=== PATIENT | female | born 1990 | race Caucasian/White ===

== ENCOUNTER 2018-02-03 13:45 | Outpatient (REF) | payer MEDICAID, SELFPAY ==
--- NOTE | 2018-02-03 13:00 | CER_PTH ---
PATIENT: Nelia Son LOC: [facility] U#:[id number] AGE/SX: 27/F ROOM: RE02/03/[address]: Jany Pham : 1990 BED: DIS: 02/03/2018 SPEC #: [id number] RECD: 02/03/18 17:29 STATUS: JEFRY REQing #: [id number] RIVERA: 02/03/18 13:[address]: Jany Pham DEPT: Surgical Specimen RECD BY: Mary Kelsey ENTERED: 02/03/18 17:30 SP TYPE: CER BOBBY DR: No Local Tissues: 1 - CERVICAL BIOPSY 2 - CERVICAL BIOPSY Procedures: GROSS AND MICRO LEVEL 5 Comments: [id number]
== END 2018-02-03 14:05 ==
LOC: LBN 13:45
PROVIDERS: Visit Provider Obstetrics & Gynecology Gynecology
DX: N87.1 Moderate cervical dysplasia (principal)
CPT/HCPCS: 88305; 88307

== ENCOUNTER 2018-04-30 15:15 | Emergency (ER) | payer MEDICAID, SELFPAY ==
[2018-04-30 15:40] VITALS: BP 111/82; PULSE 90; RESP 18; TEMP 36.8; O2SAT 99
--- NOTE | 2018-04-30 16:29 | ED.GENADUL_ITS ---
Discharge Plan Disposition Patient Disposition: HOME Condition: Stable Discharge Details Chief Complaint: RespSymp Clinical Impression: Upper respiratory infection Reason For Visit: cold Primary Care Provider: Svitlana Gilbert ED Provider: Audrey Cabrera Home Meds and New Rx's Prescriptions: Continued etonogestrel-ethinyl estradiol [NuvaRing] 1 EACH ring 1 ea VG 1 q 3 weeks Qty: 3 RF: 3 Discharge Instructions Instructions: Sinusitis (ED), Upper Respiratory Infection (ED) Additional Instructions: Please return immediately to the emergency department if you develop any new or worsening symptoms or if you become otherwise concerned. It is extremely important that you make an appointment with your primary care doctor to be seen within the next 1-2 weeks and follow-up for this visit. Referrals: Svitlana Gilbert [Primary Care Provider] - Discharge Data Discharge Date/Time-TO BE ENTERED AT DEPARTURE: 04/30/18 19:55 Medical Decision Making Nelia Son is a 27 y/o woman without h/o major medical problems presenting to the emergency department with cough, nasal congestion, and sinus pressure for one week after having recently course of abx for same. Did have asymptomatic period after finishing abx. On exam Pt is very well and non-toxic appearing. Mild sinus TTP. Lungs CTAB. Concern for possible PNA, flu. Plan for flu swab, CXR. Exam/hx not c/w sepsis, PE, ACS, CHF, bacterial sinusitis, meningitis, abscess. CXR okay. flu neg. No indication for abx or admission at this time. I had a lengthy discussion with the Pt re: RTED precautions and importance of outpt f/u with PCP. Pt verbalizes understanding of the plan. Medical Records Medical records reviewed: Yes I reviewed the patient's medical records. Imaging Data Radiologic Study: Attestation: I personally reviewed and interpreted this imaging study as follows: Radiologist's impression: CHEST X-RAY, PA AND LATERAL: Comparison 12/16/17 The heart is normal in size. The lungs are clear. The mediastinal structures and pleura appear intact. CONCLUSION: Normal chest. Lab Data Lab results reviewed: Yes I reviewed the patient's lab results. HPI General Mode of arrival: ambulatory . Date/Time Provider Initiated Documentation: 04/30/18 16:28 . Limitations to Documentation: no limitations . Information obtained by: patient, RN notes reviewed and old records reviewed . HPI Narrative: Nelia Son is a 27-year-old woman without history of major medical problems presenting to emergency department with cough, stuffy nose, and sinus pressure for 1 week. Patient reports that she was ill with similar symptoms last month, and took 10 days of antibiotics which she finished prior to . She reports no fevers, no shortness of breath, no pain other than sinus pressure, no nausea/vomiting/diarrhea, no rash, no weakness, no numbness or tingling. She has been eating and drinking as usual. No recent travel. Related Data Home Medications Medication Instructions Recorded Confirmed etonogestrel-ethinyl estradiol 1 ea VG 1 q 3 weeks #3 vag.ring 11/11/17 04/30/18 [NuvaRing] Previous Rx's Medication Instructions Recorded etonogestrel-ethinyl estradiol 1 ea VG 1 q 3 weeks #3 vag.ring 11/11/17 [NuvaRing] Allergies Allergy/AdvReac Type Severity Reaction Status Date / Time No Known Allergies Allergy Unverified 04/30/18 16:14 General Stated Complaint: RespSymp JIM: 4 Review of Systems Review of Systems Constitutional: denies fevers Eyes: denies eye pain ENT: denies facial pain, dental pain, sore throat Cardiovascular: denies chest pain, edema Respiratory: denies SOB, reports cough GI: denies abdominal pain, vomiting, diarrhea : denies flank pain MSK: denies back pain, neck pain, arthralgias, myalgias Skin: denies rash Neuro: denies headaches, lightheadedness, weakness PFSH Tobacco use (Acute) Abnormal Pap smear of cervix (Acute) DALLAS II (cervical intraepithelial neoplasia II) (Resolved) Surgical History H/O LEEP (Acute) Social History household members: children and other details: Cameron. Clinton. number of children: 2 Smoking/Tobacco Use Status: Current every day counseling given: provider counseling and counseling >3 minutes alcohol intake: current alcohol intake frequency: other details: MONTHLY OR LESS substance use type: does not use Female Reproductive History Menstrual control method: vaginal ring History History 2 Para 2 Hx # Term Pregnancies 2 Multiple births Hx # Pregnancies Ectopic pregnancies AB induced Hx Number of Living Children AB spontaneous Exam Narrative Exam Narrative: Constitutional: well and [id number]-[id number], pleasant, conversing normally HENT: head atraumatic, normocephalic normal inspection, mucous membranes moist, mild TTP of frontal sinuses, no overlying skin changes, normal oropharynx Eyes: conjunctiva normal, sclera normal, pupils 3mm b/l Neck: no stridor, normal ROM, trachea midline Chest: normal inspection Resp: normal work of breathing, LCTAB Cardio: normal rate, normal rhythm, no murmur appreciated Back: normal inspection, no rash Skin: warm, dry, normal color, no rash Neuro: alert, not altered, grossly non-focal, normal tone Ext: no edema, no posterior calf TTP Psych: normal mood, normal affect, normal behavior Course Vital Signs Temperature 36.8 C 04/30/18 15:40 Pulse 90 04/30/18 15:40 Respiratory Rate 18 04/30/18 15:40 Blood Pressure 111/82 04/30/18 15:40 Pulse Oximetry 99 04/30/18 15:40 Temperature 36.8 C 04/30/18 15:40 Temperature Source Tympanic 04/30/18 15:40 Pulse 90 04/30/18 15:40 Respiratory Rate 18 04/30/18 15:40 Respiratory Effort 04/30/18 16:15 Respiratory Depth Normal 04/30/18 16:15 Blood Pressure 111/82 04/30/18 15:40 Blood Pressure Position Sitting 04/30/18 15:40 Pulse Oximetry 99 04/30/18 15:40 Oxygen Delivery Method Room Air 04/30/18 15:40 Oxygen Flow Rate 0 04/30/18 15:40
--- NOTE | 2018-04-30 16:48 | DI.RAD_ITS ---
SYMPTOM/DIAGNOSIS: COUGH CHEST X-RAY, PA AND LATERAL: Comparison 12/16/17 The heart is normal in size. The lungs are clear. The mediastinal structures and pleura appear intact. CONCLUSION: Normal chest.
--- NOTE | 2018-04-30 17:54 | DI.VRAD_ITS ---
EXAM: XR Chest, 2 Views EXAM DATE/TIME: 04/30/2018 5:24 PM CLINICAL HISTORY: 27 years old, female; Signs and symptoms; Cough TECHNIQUE: XR of the chest, 2 views. COMPARISON: CR CHEST 2 VIEWS PA,LAT 12/16/2017 7:43 PM FINDINGS: Lungs: Unremarkable. No consolidation. Pleural space: Unremarkable. No pleural effusion. No pneumothorax. Heart/Mediastinum: Unremarkable. No cardiomegaly. Bones/joints: Unremarkable. IMPRESSION: No acute findings. Dictated and Authenticated by: Markie Waterman MD. Ordering:MALCOLM GONZALEZ MD
== END 2018-04-30 19:55 | disposition home or self-care (01) ==
PROVIDERS: Emergency Provider Student in an Organized Health Care Education/Training Program; PCP Nurse Practitioner
DX: J06.9 Acute upper respiratory infection, unspecified (principal)
CPT/HCPCS: 81025; 87449; 99283; 71046

== ENCOUNTER 2018-07-27 10:24 | Emergency (ER) | payer MEDICAID, SELFPAY ==
[2018-07-27 10:53] VITALS: BP 108/89; PULSE 86; RESP 16; TEMP 36.7; O2SAT 99
--- NOTE | 2018-07-27 11:03 | W.ED.GENAD ---
Discharge Plan Disposition Patient Disposition: HOME Condition: Stable Discharge Details Chief Complaint: Abd Prob Clinical Impression: Ovarian cyst Primary Care Provider: Svitlana Gilbert ED Provider: Wolf Lr Home Meds and New Rx's Prescriptions: New ibuprofen [IBU] 600 mg tablet 600 mg PO QID PRN (Reason: pain) Qty: 20 RF: 0 No Action NuvaRing 1 EACH ring 1 ea VG 1 q 3 weeks Qty: 3 RF: 3 Discharge Instructions Instructions: Ovarian Cyst (ED) Additional Instructions: Return immediately to the emergency department for any new or worsening symptoms, fever chills, nausea vomiting or further concerns you may have. Otherwise you should follow-up with [facility] later this week for reassessment. Please take ibuprofen as needed for pain control. Stand Alone Forms: Work Release Referrals: [facility] [Provider Group] - 1 week (For reassessment) Discharge Data Discharge Date/Time-TO BE ENTERED AT DEPARTURE: 07/27/18 18:02 Medical Decision Making Patient presenting to the emergency department for chief complaint of abdominal pain. She states this morning when she woke up she had some epigastric pain that radiated down to her left lower quadrant. Patient states some nausea no vomiting denies any other symptoms. Physical exam shows epigastric tenderness along with mild left lower quadrant tenderness. Patient did state that this felt similar to when she had her gallbladder attack in her gallbladder was removed. No specific peritoneal findings are noted on exam and abdomen shows no surgical findings at this time. Plan to check labs including urinalysis, hydrate, give GI cocktail and ranitidine for suspicion of gastritis. Plan to defer CT until after labs Reviewed labs which are non-worrisome at this time but patient was reassessed and stated improvement of epigastric tenderness but had continued left lower quadrant pain. Spoke to patient about risk versus benefit of CT imaging which she was agreeable to having CT imaging performed. Pending results due to continued pain patient given ketorolac. Review of CT imaging shows findings suggestive of right ruptured ovarian cyst and left vascular congestion. Patient reassessed after these findings and states increase in pain in left lower quadrant compared to other results. Given vascular congestion left lower quadrant pain and imaging findings involving ovaries I do feel that ultrasound imaging would be prudent to perform. Patient is agreeable to waiting for this imaging and testing Review of testing shows right ovarian cyst with no signs or evidence of torsion at this time. Patient reassessed and states stable pain and appears comfortable at this time. Patient was recommended to follow-up with gynecology and was prescribed NSAIDs for pain relief. Return precautions were discussed. After discussion of diagnosis and plan of care patient has no further needs, questions, or concerns and states clear understanding to return to the emergency department for any worsening symptoms. HPI General Mode of arrival: ambulatory. Date/Time Provider Initiated Documentation: 07/27/18 10:55. Limitations to Documentation: no limitations. Information obtained by: patient. History of Present Illness described as moderate, with intensity rated at 7. Quality is described as sharp, and is localized to the abdomen. Patient started experiencing this hour(s) (3) and it has been constant. No relieving factors improve symptom(s), No exacerbating factors reported . Patient notes no other symptoms.. Patient did receive the following treatments prior to arrival, none Related Data Home Medications Medication Instructions Recorded Confirmed NuvaRing 1 ea VG 1 q 3 weeks #3 vag.ring 11/11/17 07/31/18 ibuprofen [IBU] 600 mg PO QID PRN #20 tab 07/27/18 07/31/18 Previous Rx's Medication Instructions Recorded NuvaRing 1 ea VG 1 q 3 weeks #3 vag.ring 11/11/17 ibuprofen [IBU] 600 mg PO QID PRN #20 tab 07/27/18 Allergies Allergy/AdvReac Type Severity Reaction Status Date / Time No Known Allergies Allergy Unverified 07/31/18 08:53 General Stated Complaint: Abd Prob JIM: 3 Review of Systems Constitutional Denies chills, Denies fever(s) and Reports poor appetite Cardiovascular Denies chest pain and Denies dyspnea Respiratory Denies cough and Denies dyspnea Gastrointestinal Reports as per HPI, Reports abdominal pain, Denies melena, Denies change in bowel habits, Denies constipation, Denies diarrhea, Reports nausea and Denies vomiting Genitourinary Denies hematuria, Denies urinary incontinence, Denies urinary hesitancy and Denies urinary urgency Integumentary/Breasts Denies rash [facility] Medical History Tobacco use (Acute) Abnormal Pap smear of cervix (Acute) DALLAS II (cervical intraepithelial neoplasia II) (Resolved) Surgical History H/O LEEP (Acute) Social History Smoking/Tobacco Use Status: Current every day Counseling given: provider counseling and counseling >3 minutes Alcohol Intake: current Alcohol Intake frequency: other Details: MONTHLY OR LESS Drug use: Never Substance use type: does not use Household members: children and other Details: Cameron. [place]. Do you feel safe in your relationship?: Yes Female Reproductive History Menstrual control method: vaginal ring History History 2 Para 2 Hx # Term Pregnancies 2 Multiple births Hx # Pregnancies Ectopic pregnancies AB induced Hx Number of Living Children AB spontaneous Exam Const General: cooperative Orientation: alert, awake and oriented x3 Resp Effort & Inspection: normal respiratory effort and able to speak in complete sentences Auscultation: clear to auscultation bilaterally Cardio Rate: regular rate Rhythm: regular rhythm Heart Sounds: S1 normal and S2 normal GI Palpation: soft, no hepatosplenomegaly, not firm, no guarding, no masses, no pulsatile masses, not rigid, no splenomegaly and tender in the epigastrum and in the LLQ Auscultation: normal bowel sounds Back/Spine/Pelvis Back: no CVA tenderness Neuro General: alert, awake, oriented x3, gait normal and moves all extremities Course Vital Signs Temperature 36.7 C 07/27/18 10:53 Pulse 86 07/27/18 10:53 Respiratory Rate 16 07/27/18 10:53 Blood Pressure 108/89 07/27/18 10:53 Pulse Oximetry 99 07/27/18 10:53 Temperature 36.7 C 07/27/18 10:53 Temperature Source Tympanic 07/27/18 10:53 Pulse 86 07/27/18 10:53 Respiratory Rate 16 07/27/18 10:53 Blood Pressure 108/89 07/27/18 10:53 Pulse Oximetry 99 07/27/18 10:53 Oxygen Delivery Method Room Air 07/27/18 10:53 Oxygen Flow Rate 0 07/27/18 10:53 Pain Level 7 07/27/18 10:53
--- NOTE | 2018-07-27 11:06 | ED.GENADUL_ITS ---
Discharge Plan Disposition Patient Disposition: HOME Condition: Stable Discharge Details Chief Complaint: Abd Prob Clinical Impression: Ovarian cyst Primary Care Provider: Svitlana Gilbert ED Provider: Wolf Lr Home Meds and New Rx's Prescriptions: New ibuprofen [IBU] 600 mg tablet 600 mg PO QID PRN (Reason: pain) Qty: 20 RF: 0 No Action NuvaRing 1 EACH ring 1 ea VG 1 q 3 weeks Qty: 3 RF: 3 Discharge Instructions Instructions: Ovarian Cyst (ED) Additional Instructions: Return immediately to the emergency department for any new or worsening symptoms, fever chills, nausea vomiting or further concerns you may have. Otherwise you should follow-up with [facility] later this week for reassessment. Please take ibuprofen as needed for pain control. Stand Alone Forms: Work Release [facility] (For reassessment) Discharge Data Discharge Date/Time-TO BE ENTERED AT DEPARTURE: 07/27/18 18:02 Medical Decision Making Patient presenting to the emergency department for chief complaint of abdominal pain. She states this morning when she woke up she had some epigastric pain that radiated down to her left lower quadrant. Patient states some nausea no vomiting denies any other symptoms. Physical exam shows epigastric tenderness along with mild left lower quadrant tenderness. Patient did state that this felt similar to when she had her gallbladder attack in her gallbladder was removed. No specific peritoneal findings are noted on exam and abdomen shows no surgical findings at this time. Plan to check labs including urinalysis, hydrate, give GI cocktail and ranitidine for suspicion of gastritis. Plan to defer CT until after labs Reviewed labs which are non-worrisome at this time but patient was reassessed and stated improvement of epigastric tenderness but had continued left lower quadrant pain. Spoke to patient about risk versus benefit of CT imaging which she was agreeable to having CT imaging performed. Pending results due to continued pain patient given ketorolac. Review of CT imaging shows findings suggestive of right ruptured ovarian cyst and left vascular congestion. Patient reassessed after these findings and states increase in pain in left lower quadrant compared to other results. Given vascular congestion left lower quadrant pain and imaging findings involving ovaries I do feel that ultrasound imaging would be prudent to perform. Patient is agreeable to waiting for this imaging and testing Review of testing shows right ovarian cyst with no signs or evidence of torsion at this time. Patient reassessed and states stable pain and appears comfortable at this time. Patient was recommended to follow-up with gynecology and was prescribed NSAIDs for pain relief. Return precautions were discussed. After discussion of diagnosis and plan of care patient has no further needs, questions, or concerns and states clear understanding to return to the emergency department for any worsening symptoms. HPI General Mode of arrival: ambulatory . Date/Time Provider Initiated Documentation: 07/27/18 10:55 . Limitations to Documentation: no limitations . Information obtained by: patient . History of Present Illness described as moderate, with intensity rated at 7. Quality is described as sharp, and is localized to the abdomen. Patient started experiencing this hour(s) (3) and it has been constant. No relieving factors improve symptom(s), No exacerbating factors reported . Patient notes no other symptoms.. Patient did receive the following treatments prior to arrival, none Related Data Home Medications Medication Instructions Recorded Confirmed NuvaRing 1 ea VG 1 q 3 weeks #3 vag.ring 11/11/17 07/31/18 ibuprofen [IBU] 600 mg PO QID PRN #20 tab 07/27/18 07/31/18 Previous Rx's Medication Instructions Recorded NuvaRing 1 ea VG 1 q 3 weeks #3 vag.ring 11/11/17 ibuprofen [IBU] 600 mg PO QID PRN #20 tab 07/27/18 Allergies Allergy/AdvReac Type Severity Reaction Status Date / Time No Known Allergies Allergy Unverified 07/31/18 08:53 General Stated Complaint: Abd Prob JIM: 3 Review of Systems Constitutional Denies chills, Denies fever(s) and Reports poor appetite Cardiovascular Denies chest pain and Denies dyspnea Respiratory Denies cough and Denies dyspnea Gastrointestinal Reports as per HPI, Reports abdominal pain, Denies melena, Denies change in bowel habits, Denies constipation, Denies diarrhea, Reports nausea and Denies vomiting Genitourinary Denies hematuria, Denies urinary incontinence, Denies urinary hesitancy and Denies urinary urgency Integumentary/Breasts Denies rash [facility] Medical History Tobacco use (Acute) Abnormal Pap smear of cervix (Acute) DALLAS II (cervical intraepithelial neoplasia II) (Resolved) Surgical History H/O LEEP (Acute) Social History Smoking/Tobacco Use Status: Current every day Counseling given: provider counseling and counseling >3 minutes Alcohol Intake: current Alcohol Intake frequency: other Details: MONTHLY OR LESS Drug use: Never Substance use type: does not use Household members: children and other Details: Cameron. [place]. Do you feel safe in your relationship?: Yes Female Reproductive History Menstrual control method: vaginal ring History History 2 Para 2 Hx # Term Pregnancies 2 Multiple births Hx # Pregnancies Ectopic pregnancies AB induced Hx Number of Living Children AB spontaneous Exam Const General: cooperative Orientation: alert, awake and oriented x3 Resp Effort & Inspection: normal respiratory effort and able to speak in complete sentences Auscultation: clear to auscultation bilaterally Cardio Rate: regular rate Rhythm: regular rhythm Heart Sounds: S1 normal and S2 normal GI Palpation: soft, no hepatosplenomegaly, not firm, no guarding, no masses, no pulsatile masses, not rigid, no splenomegaly and tender in the epigastrum and in the LLQ Auscultation: normal bowel sounds Back/Spine/Pelvis Back: no CVA tenderness Neuro General: alert, awake, oriented x3, gait normal and moves all extremities Course Vital Signs Temperature 36.7 C 07/27/18 10:53 Pulse 86 07/27/18 10:53 Respiratory Rate 16 07/27/18 10:53 Blood Pressure 108/89 07/27/18 10:53 Pulse Oximetry 99 07/27/18 10:53 Temperature 36.7 C 07/27/18 10:53 Temperature Source Tympanic 07/27/18 10:53 Pulse 86 07/27/18 10:53 Respiratory Rate 16 07/27/18 10:53 Blood Pressure 108/89 07/27/18 10:53 Pulse Oximetry 99 07/27/18 10:53 Oxygen Delivery Method Room Air 07/27/18 10:53 Oxygen Flow Rate 0 07/27/18 10:53 Pain Level 7 07/27/18 10:53
[2018-07-27] MEDS: Normal Saline 1,000 ML 1000 ML IV (11:14)
[2018-07-27 11:17] LABS: Abs Immature Grans 0.02 k/cumm (0.0-0.09); Absolute Basophil Count 0.04 k/cumm (0.0-0.2); Absolute Eosinophil Count 0.14 k/cumm (0.0-0.7); Absolute Lymphocyte Count 1.45 k/cumm (1.2-3.4); Absolute Monocyte Count 0.85 k/cumm (0.11-0.7); Absolute Neutrophil Count 7.85 k/cumm (1.2-6.7); Basophils % 0.4; Eosinophils % 1.4; HCT 41.9 % (36.0-46.0); HGB 13.9 g/dL (12.0-15.5); Immature Grans % 0.2; Mean Corp. HGB Concentration 33.2 g/dL (32.0-36.0); Mean Corpuscular Hemoglobin 29.6 pg (27.0-33.0); Mean Corpuscular Volume 89.1 fL (80-95); Monocytes % 8.2; Neutrophils % 75.8; Platelet Count 369 x1000/uL (130-400); RBC Distribution Width 12.7 % (11.7-14.6); White Blood Cell Count 10.35 k/cumm (4.4-10.8)
[2018-07-27 11:20] LABS: Bilirubin Negative (Negative); Blood Negative (Negative); Clarity Clear; Glucose Negative (Negative); Ketones Negative (Negative); Leukocyte Esterase Negative (Negative); Nitrite Negative (Negative); Urobilinogen 0.2 EU/dL (Up TO 0.2)
[2018-07-27 11:29] LABS: ALT 23 U/L (12-78); AST 20 U/L (15-37); Albumin 3.8 g/dL (3.4-5.0); Alkaline Phosphatase 91 U/L (46-116); Anion Gap 6.5 mmol/L (3-11); BUN 12 mg/dL (7-18); Bilirubin, Total 0.3 mg/dL (0.2-1.0); CO2 28.5 mmol/L (21.0-32.0); CREATININE 0.88 mg/dL (0.55-1.02); Calcium 8.9 mg/dL (8.5-10.1); Chloride 102 mmol/L (98-107); Glucose 99 mg/dL (70-100); Lipase 117 U/L (73-393); Potassium 3.8 mmol/L (3.5-5.1); Sodium 137 mmol/L (136-145)
--- NOTE | 2018-07-27 12:31 | DI.CT_ITS ---
SYMPTOM/DIAGNOSIS: ABD PAIN ABDOMEN AND PELVIC CT: CT scan was performed following the uneventful administration of intravenous contrast material. Dependent atelectatic changes are seen in the lungs. The liver is normal in size. No evidence of a hepatic mass. There is mild periportal edema noted. No biliary ductal dilatation is present. The patient is status post cholecystectomy. The portal, superior mesenteric and splenic veins are patent. The pancreas is unremarkable as are the spleen and adrenal glands. The kidneys show normal and symmetric enhancement. No evidence of a solid renal mass or obstruction. The urinary bladder is intact. The uterus appears mildly heterogeneous and uterine fibroids cannot be excluded. The left ovary is grossly unremarkable. Within the right ovary, there are multiple cystic regions, the largest has an enhancing rim and measures 2.8 cm. There is a small to moderate amount of free fluid in the cul-de-sac which may reflect recently ruptured cyst. There is prominence of the pelvic veins, particularly on the left. The bowel shows no evidence of obstruction or inflammation. No evidence of an acute appendicitis is present. The abdominal aorta is of normal caliber. No evidence of abdominal or pelvic adenopathy or pneumoperitoneum is seen. No acute osseous abnormality is identified. IMPRESSION: 1. Right ovary cyst measuring 2.8 cm. 2. Small to moderate amount of free fluid in the cul-de-sac which may represent a recently ruptured cyst. 3. Prominent pelvic veins, particularly on the left which may reflect some degree of pelvic congestion syndrome.
[2018-07-27] MEDS: Ketorolac 15 MG/ML VIAL IVP (12:37)
[2018-07-27 12:39] VITALS: BP 101/61; PULSE 60; RESP 18; TEMP 36.6; O2SAT 98
[2018-07-27] MEDS: Omnipaque 350 MG/ML 100 ML BTL IV (13:15)
[2018-07-27 14:04] VITALS: BP 92/53; PULSE 60; RESP 16; TEMP 36.8; O2SAT 100
--- NOTE | 2018-07-27 14:14 | DI.VRAD_ITS ---
EXAM: CT Abdomen and Pelvis With Contrast EXAM DATE/TIME: 07/27/2018 12:32 PM CLINICAL HISTORY: 28 years old, female; Signs and symptoms; Other: Abd pain; Prior surgery; Surgery date: 6+ months; Surgery type: x2 cholecystectomy TECHNIQUE: Axial computed tomography images of the abdomen and pelvis with intravenous contrast. All CT scans at this facility use at least one of these dose optimization techniques: automated exposure control; mA and/or kV adjustment per patient size (includes targeted exams where dose is matched to clinical indication); or iterative reconstruction. Coronal and sagittal reformatted images were created and reviewed. CONTRAST: Contrast Material: 71 ml of [id number]; Contrast Route: iv COMPARISON: [facility]TR[facility] 12/14/2013 4:48 PM FINDINGS: Prior cholecystectomy. Mild periportal edema exact etiology uncertain. Mild to moderate pelvic free fluid with a somewhat irregular rim-enhancing 2 cm right ovary and cyst. Findings are in keeping with recent ovarian cyst rupture. Prominent pelvic veins particularly on the left suggesting some degree of pelvic congestion syndrome. No focal inflammatory process. No bowel obstruction. No obstructive uropathy. IMPRESSION: 1. Findings suggesting recent ovarian cyst rupture. 2. Incidental possible pelvic congestion syndrome Dictated and Authenticated by: Jude Wright MD. Ordering:CARLO Bloom MD
--- NOTE | 2018-07-27 16:26 | DI.US_ITS ---
SYMPTOM/DIAGNOSIS: LLQ PAIN, F/U ABNL CT PELVIC ULTRASOUND: Transabdominal and transvaginal examination was performed. Comparison is made with CT from earlier in the day. The uterus measures 7.9 cm. in length by 4.9 cm. AP by 5.8 cm. transverse. The endometrial stripe is within normal limits at .5 cm. There is a tiny amount of fluid seen in the endometrial canal. The left ovary measures 3.3 by 1.7 by 1.5 cm. There is arterial and venous blood flow to the left ovary. Small follicular cysts are seen. No suspicious left ovarian msas is present. No evidence of torsion is seen. The right ovary measures 6.9 by 3.9 by 3.2 cm. There is a 1.8 by 1.6 by 0.9 cm. complex right ovarian cyst. There is a 5.5 by 2.7 by 2.4 cm. simple ovarian cyst on the right ovary. There is normal blood flow to the right ovary. No evidence of torsion is seen. There is a small amount of free fluid in the pelvis which is likely physiologic. No hydronephrosis is identified. IMPRESSION: Right ovarian cysts, the largest measuring 5.5 cm. in length, the smaller measuring 1.8 cm. These likely are physiologic. The findings may represent a recently ruptured cyst. A follow up pelvic ultrasound should be considered to document resolution of the right ovarian findings.
--- NOTE | 2018-07-27 16:33 | NUR.NOTE ---
patient appears comfortable at this time, will continue to monitor Nursing Note:
--- NOTE | 2018-07-27 17:21 | NUR.NOTE ---
patient returned from U/S, pain improved 08/27 Nursing Note:
[2018-07-27 17:22] VITALS: BP 112/74; PULSE 74; RESP 14; TEMP 37; O2SAT 100
--- NOTE | 2018-07-27 17:45 | DI.VRAD_ITS ---
EXAM: US Pelvis Complete, Transabdominal and US Pelvis, Transvaginal EXAM DATE/TIME: 07/27/2018 5:17 PM CLINICAL HISTORY: 28 years old, female; Pain and abnormal findings; Abnormal imaging test; Pelvic pain TECHNIQUE: Real-time transabdominal and transvaginal pelvic ultrasound (complete) with image documentation. Transvaginal imaging was used for better evaluation of the endometrium and adnexa. COMPARISON: CT ABDOMEN PELVIS W 07/27/2018 12:15 PM FINDINGS: 1.8 cm slightly complex right ovarian cyst. Small amount of pelvic free fluid. Uterus and left ovary unremarkable. IMPRESSION: Findings consistent with recent ovarian cyst rupture. Dictated and Authenticated by: Jude Wright MD. Ordering:CARLO Bloom MD
[2018-07-27 18:00] VITALS: BP 111/91; PULSE 77; RESP 16; TEMP 37; O2SAT 100
--- NOTE | 2018-07-28 08:04 | PDOC.ERCMPRO ---
Care Management Progress Note 07/28-Sin TAVAREZ requested assistance with a [facility] f/u in one week for ovarian cyst. Referral faxed to [facility] this am.
== END 2018-07-27 18:02 | disposition home or self-care (01) ==
PROVIDERS: Emergency Provider Nurse Practitioner Family; PCP Nurse Practitioner
DX: N83.291 Other ovarian cyst, right side (principal)
CPT/HCPCS: 36415; 80053; 81025; 83690; 96361; 96374; 99285; 74177; 76830; 76856; 81003; 85025; 99284; J1885; J3490

== ENCOUNTER 2018-08-28 00:20 | Outpatient (CLI) | payer MEDICAID, SELFPAY ==
--- NOTE | 2018-08-28 07:49 | DI.US_ITS ---
SYMPTOMS/DIAGNOSIS: F/U OVARIAN CYST, N83.209 PELVIC ULTRASOUND: The uterus is unremarkable in appearance. The endometrial stripe measures about 12 mm in thickness. No free fluid identified in the cul-de-sac. The ovaries have a normal follicular appearance with resolution of previously noted right ovarian simple and complex cysts. As noted on CT there is prominence of left adnexal veins raising the possibility of pelvic congestion syndrome. Please correlate clinically.
== END 2018-08-28 00:40 ==
PROVIDERS: PCP Nurse Practitioner; Visit Provider Obstetrics & Gynecology
DX: N83.291 Other ovarian cyst, right side (principal); N94.89 Other specified conditions associated with female genital organs and menstrual cycle
CPT/HCPCS: 76830; 76856

== ENCOUNTER 2018-10-14 14:25 | Emergency (ER) | payer MEDICAID, SELFPAY ==
[2018-10-14 14:29] VITALS: BP 105/67; PULSE 86; RESP 16; TEMP 36.6; O2SAT 99
--- NOTE | 2018-10-14 14:34 | W.ED.GENAD ---
Discharge Plan Disposition Patient Disposition: HOME Condition: Fair Discharge Details Chief Complaint: Sorethroat Clinical Impression: Acute pharyngitis Primary Care Provider: Svitlana Gilbert ED Provider: Sabrina Thorpe Home Meds and New Rx's Prescriptions: Continued NuvaRing 1 EACH ring 1 ea VG 1 q 3 weeks Qty: 3 RF: 3 Discharge Instructions Instructions: Pharyngitis (ED) Additional Instructions: Encourage hydration. Tylenol and/or Ibuprofen as needed for discomfort. If you develop fevers/chills, increased pain, difficulty breathing, inability to stay hydrated, swelling or other new/worsening symptoms please seek care urgently once again. Follow up with primary care in one week if not improving. Referrals: Svitlana Gilbert [Primary Care Provider] - Discharge Data Discharge Date/Time-TO BE ENTERED AT DEPARTURE: 10/14/18 15:27 Medical Decision Making Patient is a 28-year-old female presenting today with chief complaint of sore throat began yesterday. She denies any fevers or chills. Is nontoxic on exam. Vital signs within normal limits. Patient has erythema and mild tonsillar hypertrophy on exam. Lungs are clear. No other acute abnormalities noted. Rapid strep was negative. Discussed this with the patient. Advised likely viral etiology. Encourage hydration. Advised Tylenol and ibuprofen as needed for discomfort. She was given strict return precautions. All her questions and concerns were addressed and she is in agreement this plan. She will follow-up with primary care in 1 week if not improving. HPI General Mode of arrival: ambulatory. Date/Time Provider Initiated Documentation: 10/14/18 14:26. Limitations to Documentation: no limitations. Information obtained by: patient and RN notes reviewed. History of Present Illness 28 year old F presents to the emergency department with the chief complaint of sore throat, described as severe, with intensity rated at 10. Quality is described as burning, and is localized to the mouth. Patient started experiencing this day(s) (1) and it has been constant. No relieving factors improve symptom(s), Eating worsens symptoms . Patient notes denies chest pain, cough, fever/chills, headaches, loss of appetite, nausea/vomiting, rash, shortness of breath and weakness. Patient did receive the following treatments prior to arrival, none Related Data Home Medications Medication Instructions Recorded Confirmed NuvaRing 1 ea VG 1 q 3 weeks #3 vag.ring 11/11/17 10/14/18 Previous Rx's Medication Instructions Recorded NuvaRing 1 ea VG 1 q 3 weeks #3 vag.ring 11/11/17 Allergies Allergy/AdvReac Type Severity Reaction Status Date / Time No Known Allergies Allergy Unverified 10/14/18 14:41 General Stated Complaint: Sorethroat JIM: 4 Review of Systems Constitutional Reports as per HPI, Denies chills, Denies fever(s), Denies headache(s) and Denies lethargy Eyes Reports as per HPI, Denies eye discharge and Denies irritation ENT Reports as per HPI, Reports otalgia (right sided), Denies headache(s), Reports sore throat and Denies throat swelling Cardiovascular Reports as per HPI, Denies chest pain and Denies dyspnea Respiratory Reports as per HPI and Denies dyspnea Gastrointestinal Reports as per HPI, Denies abdominal pain, Denies change in bowel habits, Denies nausea and Denies vomiting Integumentary/Breasts Reports as per HPI and Denies rash Neurologic Reports as per HPI and Denies headache(s) Allergic/Immunologic Denies throat swelling [facility] Medical History Tobacco use (Acute) Abnormal Pap smear of cervix (Acute) DALLAS II (cervical intraepithelial neoplasia II) (Resolved) Surgical History H/O LEEP (Acute) Social History Smoking/Tobacco Use Status: Former Tobacco Use Counseling given: provider counseling and counseling >3 minutes Alcohol Intake: current Alcohol Intake frequency: a few times a month Alcohol type: beer and wine Details: MONTHLY OR LESS Drug use: Never Substance use type: does not use Household members: children and other Details: Cameron. [place]. Number of Children: 2 Do you feel safe at home: Yes Do you feel safe in your relationship?: Yes Female Reproductive History Menstrual control method: vaginal ring History History 2 Para 2 Hx # Term Pregnancies 2 Multiple births Hx # Pregnancies Ectopic pregnancies AB induced Hx Number of Living Children AB spontaneous Exam Const General: cooperative, healthy appearing, comfortable, no acute distress, well developed and well groomed Nutritional Appearance: average body habitus and well nourished Orientation: alert and awake [facility] Head: normal to inspection, normocephalic and atraumatic Ears: hearing grossly normal bilaterally, external ears normal and TM's normal bilaterally General nose exam: external nose normal and nares normal Face and sinus: normal facial exam, sinuses nontender and face symmetric Mouth: oral mucosae normal, lip normal, tongue normal, oropharynx normal and moist mucous membranes Teeth and gingiva: dentition normal Throat: uvula midline, abnormal tonsil bilaterally erythema and hypertrophy 1+, no peritonsillar masses, uvula not displaced and no uvular edema Eyes General: appearance normal, both eyes and all related structures Neck Neck: normal visual inspection, full ROM, no lymphadenopathy and no meningeal signs Resp Effort & Inspection: normal respiratory effort, able to speak in complete sentences and no respiratory distress Auscultation: clear to auscultation bilaterally, no rales, no rhonchi and no wheezes Cardio Rate: regular rate Rhythm: regular rhythm Heart Sounds: S1 normal and S2 normal Skin General skin exam: no rashes or lesions noted Neuro General: alert and awake Cognition: normal cognition Speech: speech normal Gait: normal gait Psych Appearance: grossly normal and well kempt Mental Status: mental status grossly normal Speech and Movement: speech and movement normal Course Vital Signs Temperature 36.6 C 10/14/18 14:29 Pulse 86 10/14/18 14:29 Respiratory Rate 16 10/14/18 14:29 Blood Pressure 105/67 10/14/18 14:29 Pulse Oximetry 99 10/14/18 14:29 Temperature 36.6 C 10/14/18 14:29 Temperature Source Skin 10/14/18 14:29 Pulse 86 10/14/18 14:29 Respiratory Rate 16 10/14/18 14:29 Blood Pressure 105/67 10/14/18 14:29 Blood Pressure Position Sitting 10/14/18 14:29 Pulse Oximetry 99 10/14/18 14:29 Oxygen Delivery Method Room Air 10/14/18 14:29 Oxygen Flow Rate 0 10/14/18 14:29 Pain Level 10 10/14/18 14:29
--- NOTE | 2018-10-14 14:50 | ED.GENADUL_ITS ---
Discharge Plan Disposition Patient Disposition: HOME Condition: Fair Discharge Details Chief Complaint: Sorethroat Clinical Impression: Acute pharyngitis Primary Care Provider: Svitlana Gilbert ED Provider: Sabrina Thorpe Home Meds and New Rx's Prescriptions: Continued NuvaRing 1 EACH ring 1 ea VG 1 q 3 weeks Qty: 3 RF: 3 Discharge Instructions Instructions: Pharyngitis (ED) Additional Instructions: Encourage hydration. Tylenol and/or Ibuprofen as needed for discomfort. If you develop fevers/chills, increased pain, difficulty breathing, inability to stay hydrated, swelling or other new/worsening symptoms please seek care urgently once again. Follow up with primary care in one week if not improving. Referrals: Svitlana Gilbert [Primary Care Provider] - Discharge Data Discharge Date/Time-TO BE ENTERED AT DEPARTURE: 10/14/18 15:27 Medical Decision Making Patient is a 28-year-old female presenting today with chief complaint of sore throat began yesterday. She denies any fevers or chills. Is nontoxic on exam. Vital signs within normal limits. Patient has erythema and mild tonsillar hypertrophy on exam. Lungs are clear. No other acute abnormalities noted. Rapid strep was negative. Discussed this with the patient. Advised likely viral etiology. Encourage hydration. Advised Tylenol and ibuprofen as needed for discomfort. She was given strict return precautions. All her questions and concerns were addressed and she is in agreement this plan. She will follow-up with primary care in 1 week if not improving. HPI General Mode of arrival: ambulatory . Date/Time Provider Initiated Documentation: 10/14/18 14:26 . Limitations to Documentation: no limitations . Information obtained by: patient and RN notes reviewed . History of Present Illness 28 year old F presents to the emergency department with the chief complaint of sore throat, described as severe, with intensity rated at 10. Quality is described as burning, and is localized to the mouth. Patient started experiencing this day(s) (1) and it has been constant. No relieving factors improve symptom(s), Eating worsens symptoms . Patient notes denies chest pain, cough, fever/chills, headaches, loss of appetite, nausea/vomiting, rash, shortness of breath and weakness. Patient did receive the following treatments prior to arrival, none Related Data Home Medications Medication Instructions Recorded Confirmed NuvaRing 1 ea VG 1 q 3 weeks #3 vag.ring 11/11/17 10/14/18 Previous Rx's Medication Instructions Recorded NuvaRing 1 ea VG 1 q 3 weeks #3 vag.ring 11/11/17 Allergies Allergy/AdvReac Type Severity Reaction Status Date / Time No Known Allergies Allergy Unverified 10/14/18 14:41 General Stated Complaint: Sorethroat JIM: 4 Review of Systems Constitutional Reports as per HPI, Denies chills, Denies fever(s), Denies headache(s) and Denies lethargy Eyes Reports as per HPI, Denies eye discharge and Denies irritation ENT Reports as per HPI, Reports otalgia (right sided), Denies headache(s), Reports sore throat and Denies throat swelling Cardiovascular Reports as per HPI, Denies chest pain and Denies dyspnea Respiratory Reports as per HPI and Denies dyspnea Gastrointestinal Reports as per HPI, Denies abdominal pain, Denies change in bowel habits, Denies nausea and Denies vomiting Integumentary/Breasts Reports as per HPI and Denies rash Neurologic Reports as per HPI and Denies headache(s) Allergic/Immunologic Denies throat swelling [facility] Medical History Tobacco use (Acute) Abnormal Pap smear of cervix (Acute) DALLAS II (cervical intraepithelial neoplasia II) (Resolved) Surgical History H/O LEEP (Acute) Social History Smoking/Tobacco Use Status: Former Tobacco Use Counseling given: provider counseling and counseling >3 minutes Alcohol Intake: current Alcohol Intake frequency: a few times a month Alcohol type: beer and wine Details: MONTHLY OR LESS Drug use: Never Substance use type: does not use Household members: children and other Details: Cameron. [place]. Number of Children: 2 Do you feel safe at home: Yes Do you feel safe in your relationship?: Yes Female Reproductive History Menstrual control method: vaginal ring History History 2 Para 2 Hx # Term Pregnancies 2 Multiple births Hx # Pregnancies Ectopic pregnancies AB induced Hx Number of Living Children AB spontaneous Exam Const General: cooperative, healthy appearing, comfortable, no acute distress, well developed and well groomed Nutritional Appearance: average body habitus and well nourished Orientation: alert and awake [facility] Head: normal to inspection, normocephalic and atraumatic Ears: hearing grossly normal bilaterally, external ears normal and TM's normal bilaterally General nose exam: external nose normal and nares normal Face and sinus: normal facial exam, sinuses nontender and face symmetric Mouth: oral mucosae normal, lip normal, tongue normal, oropharynx normal and moist mucous membranes Teeth and gingiva: dentition normal Throat: uvula midline, abnormal tonsil bilaterally erythema and hypertrophy 1+, no peritonsillar masses, uvula not displaced and no uvular edema Eyes General: appearance normal, both eyes and all related structures Neck Neck: normal visual inspection, full ROM, no lymphadenopathy and no meningeal signs Resp Effort & Inspection: normal respiratory effort, able to speak in complete sentences and no respiratory distress Auscultation: clear to auscultation bilaterally, no rales, no rhonchi and no wheezes Cardio Rate: regular rate Rhythm: regular rhythm Heart Sounds: S1 normal and S2 normal Skin General skin exam: no rashes or lesions noted Neuro General: alert and awake Cognition: normal cognition Speech: speech normal Gait: normal gait Psych Appearance: grossly normal and well kempt Mental Status: mental status grossly normal Speech and Movement: speech and movement normal Course Vital Signs Temperature 36.6 C 10/14/18 14:29 Pulse 86 10/14/18 14:29 Respiratory Rate 16 10/14/18 14:29 Blood Pressure 105/67 10/14/18 14:29 Pulse Oximetry 99 10/14/18 14:29 Temperature 36.6 C 10/14/18 14:29 Temperature Source Skin 10/14/18 14:29 Pulse 86 10/14/18 14:29 Respiratory Rate 16 10/14/18 14:29 Blood Pressure 105/67 10/14/18 14:29 Blood Pressure Position Sitting 10/14/18 14:29 Pulse Oximetry 99 10/14/18 14:29 Oxygen Delivery Method Room Air 10/14/18 14:29 Oxygen Flow Rate 0 10/14/18 14:29 Pain Level 10 10/14/18 14:29
[2018-10-14 15:16] VITALS: BP 105/67; PULSE 86; RESP 16; TEMP 36.6; O2SAT 99
== END 2018-10-14 15:27 | disposition home or self-care (01) ==
PROVIDERS: Emergency Provider Physician Assistant; PCP Nurse Practitioner
DX: J02.9 Acute pharyngitis, unspecified (principal)
CPT/HCPCS: 87880; 99282; 87081

== ENCOUNTER 2018-11-04 08:14 | Emergency (ER) | payer MEDICAID, SELFPAY ==
[2018-11-04 08:22] VITALS: BP 118/76; PULSE 92; RESP 16; TEMP 36.4; O2SAT 100
--- NOTE | 2018-11-04 08:39 | ED.GENADUL_ITS ---
Discharge Plan Disposition Patient Disposition: HOME Condition: Stable Discharge Details Chief Complaint: FlankPain Clinical Impression: Acute UTI Primary Care Provider: Svitlana Gilbert ED Provider: Wolf Lr Home Meds and New Rx's Prescriptions: New cephalexin [Keflex] 500 mg capsule 500 mg PO TID 5 Days Qty: 15 RF: 0 ondansetron 4 mg tablet,disintegrating 4 mg PO BID-TID PRN (Reason: nausea and vomiting) Qty: 10 RF: 0 Continued NuvaRing 1 EACH ring 1 ea VG 1 q 3 weeks Qty: 3 RF: 3 Discharge Instructions Instructions: Urinary Tract Infection in Women (ED) Additional Instructions: During illness please stay well-hydrated and you may use [id number] ibuprofen as needed for discomfort. If you begin having any severe vomiting, significant worsening of your symptoms, or not improving in 24 to 48 hours return to the emergency department for reassessment. Otherwise follow-up with your primary care provider for reassessment as needed Stand Alone Forms: Work Release Referrals: Svitlana Gilbert [Primary Care Provider] - (As needed for reassessment) Medical Decision Making Patient presenting to the emergency department for chief complaint of burning with urination and flank pain. Patient states that 3 days ago she started having burning with urination then over the past couple days she has noted some flank pain this morning some nausea. Patient denies any fever chills, vomiting, abdominal pain. Physical exam shows mild right CVA tenderness and suprapubic tenderness otherwise respiratory cardiac and abdominal exam are unremarkable. Concern for urinary tract infection is chief diagnosis. While there is consideration of possible pyelonephritis given the patient is afebrile, no vomiting, and otherwise stable in appearance I do not think this is pyelonephritis at this time. Given that symptoms started out as dysuria and then migrated into flank pain renal calculi is considered but again feel this is more urinary tract infection in nature. Due to this I feel that urinalysis initially is appropriate and that CT imaging or labs are not required at this time. Pending results patient given ibuprofen and Zofran. Review of urinalysis shows significant WBCs and positive for leukocyte esterase otherwise only small RBCs are noted no crystals no casts due to this I feel that treating patient for urinary tract infection is appropriate. Patient does state improvement after Zofran and ibuprofen. Patient placed on Keflex pending urine culture and return precautions were discussed. After discussion of diagnosis and plan of care patient has no further needs, questions, or concerns and states clear understanding to return to the emergency department for any worsening symptoms. HPI General Mode of arrival: ambulatory . Date/Time Provider Initiated Documentation: 11/04/18 08:16 . Limitations to Documentation: no limitations . Information obtained by: patient and RN notes reviewed . History of Present Illness 28 year old F presents to the emergency department with the chief complaint of Dysuria, flank pain, described as severe, with intensity rated at 10. Quality is described as sharp, and is localized to the right (Flank). Patient started experiencing this day(s) (3) and it has been constant. No exacerbating factors reported . Patient notes no other symptoms.. Patient did receive the following treatments prior to arrival, none Related Data Home Medications Medication Instructions Recorded Confirmed NuvaRing 1 ea VG 1 q 3 weeks #3 vag.ring 11/11/17 10/14/18 cephalexin [Keflex] 500 mg PO TID 5 Days #15 cap 11/04/18 ondansetron 4 mg PO BID-TID PRN #10 tab 11/04/18 Previous Rx's Medication Instructions Recorded NuvaRing 1 ea VG 1 q 3 weeks #3 vag.ring 11/11/17 cephalexin [Keflex] 500 mg PO TID 5 Days #15 cap 11/04/18 ondansetron 4 mg PO BID-TID PRN #10 tab 11/04/18 Allergies Allergy/AdvReac Type Severity Reaction Status Date / Time No Known Allergies Allergy Unverified 11/04/18 08:34 General Stated Complaint: FlankPain JIM: 3 Review of Systems Constitutional Denies body ache(s), Denies chills, Denies fever(s) and Denies malaise Cardiovascular Denies chest pain Respiratory Reports system reviewed and no additional complaints, except as docu Gastrointestinal Denies abdominal pain, Reports nausea and Denies vomiting Genitourinary Reports as per HPI, Denies hematuria, Reports urinary frequency, Reports dysuria, Denies pelvic pain, Reports flank pain, Denies urinary incontinence, Denies urinary hesitancy, Reports urinary urgency, Denies vaginal discharge, Denies vaginal dryness and Denies vaginal pruritus PFSH Medical History Tobacco use (Acute) Abnormal Pap smear of cervix (Acute) DALLAS II (cervical intraepithelial neoplasia II) (Resolved) Surgical History H/O LEEP (Acute) Social History Smoking/Tobacco Use Status: Former Tobacco Use Counseling given: provider counseling and counseling >3 minutes Alcohol Intake: current Alcohol Intake frequency: a few times a month Alcohol type: beer and wine Details: MONTHLY OR LESS Drug use: Never Substance use type: does not use Household members: children and other Details: Cameron. [place]. Number of Children: 2 Do you feel safe at home: Yes Do you feel safe in your relationship?: Yes Female Reproductive History Menstrual control method: vaginal ring History History 2 Para 2 Hx # Term Pregnancies 2 Multiple births Hx # Pregnancies Ectopic pregnancies AB induced Hx Number of Living Children AB spontaneous Exam Const General: cooperative and no acute distress Orientation: alert, awake and oriented x3 Resp Effort & Inspection: normal respiratory effort and able to speak in complete sentences Auscultation: clear to auscultation bilaterally Cardio Rate: regular rate Rhythm: regular rhythm Heart Sounds: S1 normal and S2 normal GI Palpation: soft, no hepatosplenomegaly, not firm, no guarding, not rigid and tender suprapubicly Auscultation: normal bowel sounds Back/Spine/Pelvis Back: CVA tenderness (right, mild) Neuro General: alert, awake and oriented x3 Extrem General: normal capillary refill Course Vital Signs Temperature 36.4 C L 11/04/18 08:22 Pulse 92 H 11/04/18 08:22 Respiratory Rate 16 11/04/18 08:22 Blood Pressure 118/76 11/04/18 08:22 Pulse Oximetry 100 11/04/18 08:22 Temperature 36.4 C L 11/04/18 08:22 Temperature Source Temporal Artery Scan 11/04/18 08:22 Pulse 92 H 11/04/18 08:22 Respiratory Rate 16 11/04/18 08:22 Respiratory Effort 11/04/18 08:22 Blood Pressure 118/76 11/04/18 08:22 Pulse Oximetry 100 11/04/18 08:22 Oxygen Delivery Method Room Air 11/04/18 08:22 Oxygen Flow Rate 0 11/04/18 08:22 Pain Level 10 11/04/18 08:26 Comment 11/04/18 08:22 Lab/Test Results Lab/Test Results: POC- Test(urine) Negative
[2018-11-04] MEDS: Ibuprofen 600 MG TAB PO (08:40)
[2018-11-04] MEDS: Ondansetron O.D.T. 4 MG TABEF PO (08:41)
[2018-11-04 09:05] LABS: Bilirubin Negative (Negative); Blood Negative (Negative); Clarity Cloudy; Glucose Negative (Negative); Ketones Negative (Negative); Leukocyte Esterase Small (Negative); Nitrite Negative (Negative); Urobilinogen 0.2 EU/dL (Up TO 0.2); pH 5.5 (5-8)
[2018-11-04 09:18] LABS: Epithelial Cells Many HPF (Negative); Other Cells Negative (Negative); WBC >50 HPF (0-5)
[2018-11-04 09:19] LABS: Bacteria Many HPF (Negative); C & S Indicated? No/Sq. Contamination; Casts Negative LPF (Negative); Crystals Negative HPF (Negative); Mucus Negative (Negative)
[2018-11-04] MEDS: Cephalexin 500 MG CAP PO (09:48)
== END 2018-11-04 09:49 | disposition home or self-care (01) ==
PROVIDERS: Emergency Provider Nurse Practitioner Family; PCP Nurse Practitioner
DX: N39.0 Urinary tract infection, site not specified (principal)
CPT/HCPCS: 81025; 99283; 81003; 81015

== ENCOUNTER 2019-01-02 15:24 | Outpatient (REF) | payer MEDICAID, SELFPAY ==
--- NOTE | 2019-01-02 13:00 | PAPFT_PTH ---
PATIENT: Nelia Son LOC: [facility] U#:[id number] AGE/SX: 28/F ROOM: RE01/02/[address]: Jany Pham : 1990 BED: DIS: 01/02/2019 SPEC #: [id number] RECD: 01/02/19 17:41 STATUS: JEFRY REQing #: [id number] RIVERA: 01/02/19 13:[address]: Jany Pham DEPT: [facility] Cytology RECD BY: Mary Kelsey ENTERED: 01/02/19 17:42 SP TYPE: PAPFT OTHR DR: Svitlana Gilbert Tissues: 1 - CX/ENDOCX FOR PAP SMEARS Procedures: PAP THIN PREP/UVM Screening Comments: [id number]
== END 2019-01-02 15:44 ==
LOC: LBN 15:24
PROVIDERS: PCP Nurse Practitioner; Visit Provider Obstetrics & Gynecology Gynecology
DX: Z12.4 Encounter for screening for malignant neoplasm of cervix (principal)
CPT/HCPCS: 88142

== ENCOUNTER 2019-01-12 13:57 | Observation (INO) | payer MEDICAID, SELFPAY ==
[2019-01-12 14:00] VITALS: BP 109/64; PULSE 104; RESP 16; TEMP 36.8; O2SAT 97
[2019-01-12 14:19] LABS: Bilirubin Negative (Negative); Blood Small (Negative); Clarity Sl Cloudy (Clear); Glucose Negative (Negative); Ketones Negative (Negative); Leukocyte Esterase Negative (Negative); Nitrite Negative (Negative); Urobilinogen 0.2 EU/dL (Up TO 0.2)
[2019-01-12 14:27] LABS: Bacteria Moderate HPF (Negative); C & S Indicated? No/Sq. Contamination; Casts Negative LPF (Negative); Crystals Negative HPF (Negative); Epithelial Cells Many HPF (Negative); Mucus Trace (Negative); Other Cells Negative (Negative); WBC 0-2 HPF (0-5)
--- NOTE | 2019-01-12 14:27 | DI.US_ITS ---
SYMPTOMS/DIAGNOSIS: RLQ PAIN, VAGINAL BLEEDING PELVIC ULTRASOUND: Comparison is made with [id number]. Transabdominal and transvaginal exams were performed. The uterus measures 7.9 x 5 x 6.3 cm. The endometrial stripe measures 9 mm in thickness. There is normal blood flow to both ovaries. Adjacent to the right ovary, there is a dilated thick walled structure with some nodular mural thickening. The findings might represent hydrosalpinx or a tubal abscess. A hemorrhagic paraovarian cyst is also a possibility. There is some adjacent free fluid. Overall it measures 5.7 x 2.9 x 3 cm. The kidneys appear normal. IMPRESSION: 5.7 cm complex collection next to the right ovary may represent hydrosalpinx or hemorrhagic paraovarian cyst. Superimposed infection can not be excluded.
[2019-01-12] MEDS: Ketorolac 15 MG/ML VIAL IVP (14:39)
[2019-01-12 14:41] LABS: Abs Immature Grans 0.04 k/cumm (0.0-0.09); Absolute Basophil Count 0.04 k/cumm (0.0-0.2); Absolute Lymphocyte Count 2.36 k/cumm (1.2-3.4); Absolute Neutrophil Count 9.32 k/cumm (1.2-6.7); Basophils % 0.3; Eosinophils % 1.5; HCT 41.4 % (36.0-46.0); HGB 13.7 g/dL (12.0-15.5); Immature Grans % 0.3; Lymphocytes % 17.5; Mean Corp. HGB Concentration 33.1 g/dL (32.0-36.0); Mean Corpuscular Hemoglobin 30.3 pg (27.0-33.0); Mean Corpuscular Volume 91.6 fL (80-95); Mean Platelet Volume 8.1 fL (8.0-11.0); Monocytes % 11.3; Neutrophils % 69.1; Platelet Count 389 x1000/uL (130-400); RBC 4.52 m/cumm (4.00-5.20); RBC Distribution Width 12.8 % (11.7-14.6); White Blood Cell Count 13.49 k/cumm (4.4-10.8)
[2019-01-12 14:47] LABS: Absolute Monocyte Count 1.52 k/cumm (0.11-0.7)
[2019-01-12 14:57] LABS: ALT 22 U/L (14-59); AST 11 U/L (15-37); Albumin 3.4 g/dL (3.4-5.0); Alkaline Phosphatase 75 U/L (46-116); Anion Gap 8.7 mmol/L (3-11); BUN 13 mg/dL (7-18); Bilirubin, Total 0.3 mg/dL (0.2-1.0); CO2 25.3 mmol/L (21.0-32.0); CREATININE 0.99 mg/dL (0.55-1.02); Calcium 8.4 mg/dL (8.5-10.1); Chloride 107 mmol/L (98-107); Glucose 99 mg/dL (70-100); Potassium 3.8 mmol/L (3.5-5.1); Sodium 141 mmol/L (136-145); Total Protein 7.2 g/dL (6.4-8.2)
--- NOTE | 2019-01-12 14:58 | ED.GENADUL_ITS ---
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 Patient states yesterday evening she started having some right suprapubic abdominal pain and vaginal bleeding. Patient does state that she is due for her normal menses but this is atypical with the amount of pain and discomfort she is having. Patient denies any nausea or vomiting, diarrhea, fever or chills. Physical exam shows normal cardiac and respiratory examination, patient does have suprapubic tenderness to the right lower quadrant but not at McBurney's point, no Morrison sign, no roving sign, patient does have some elicited guarding in the right lower quadrant and no CVA tenderness. Plan to do labs, ultrasound imaging, and check status of patient. Differential diagnosis to include renal calculi, ectopic , ovarian torsion, other intra-abdominal pathology. Review of labs shows a nonspecific leukocytosis, nondiagnostic CMP, urine with small amount of blood and 5-10 RBCs but otherwise unremarkable. Ultrasound imaging showed right hydrosalpinx <Twila Sebastian DO - Last Filed: 01/12/19 22:03> 1500 -- 28-year-old female with a history of preeclampsia, cholecystectomy and who presents with right lower quadrant abdominal pain since this mor forrest and an episode of moderate vaginal bleeding last night. She states she is sexually active with the same partner, does not use protection, denies any known exposure to STD, vaginal discharge. Patient had screening labs and ultrasound done on arrival. White blood cell count 13. Normal electrolytes. Urinalysis noted small blood no obvious infection. Ultrasound noted a 5.7 x 2.9 x 3 cm complex fluid collection to the right ovary with differential diagnosis of hydrosalpinx, hemorrhagic ovarian cyst or tubal abscess. Case endorsed to perform pelvic exam and follow-up with gynecology regarding ultrasound results. Pelvic exam performed which noted some right adnexal tenderness but no obvious mass, no cervical motion tenderness, no left adnexal mass or tenderness. There was whitish brown curdy discharge in vaginal vault noted but no yellow-greenish discharge or bleeding noted. Cervix anatomy appeared misshapen, but did not appear to have acute tissue changes. [id number] --Case discussed with Dr. Pham -she came to evaluate patient and is concerned about possible tubal abscess - she will admit patient overnight for observation and IV antibiotics. Medical Records Medical records reviewed: Yes I reviewed the patient's medical records. Imaging Data Radiologic Study: Radiologist's impression: PELVIC ULTRASOUND: Comparison is made with . Transabdominal and transvaginal exams were performed. The uterus measures 7.9 x 5 x 6.3 cm. The endometrial stripe measures 9 mm in thickness. There is normal blood flow to both ovaries. Adjacent to the right ovary, there is a dilated thick walled structure with some nodular mural thickening. The findings might represent hydrosalpinx or a tubal abscess. A hemorrhagic paraovarian cyst is also a possibility. There is some adjacent free fluid. Overall it measures 5.7 x 2.9 x 3 cm. The kidneys appear normal. IMPRESSION: 5.7 cm complex collection next to the right ovary may represent hydrosalpinx or hemorrhagic paraovarian cyst. Superimposed infection can not be excluded. Lab Data Lab results reviewed: Yes I reviewed the patient's lab results. Laboratory Tests Range/Units 01/12/19 01/12/19 01/12/19 14:08 14:35 14:35 WBC (4.4-10.8) k/cumm 13.49 H RBC (4.00-5.20) m/cumm 4.52 Hgb (12.0-15.5) g/dL 13.7 Hct (36.0-46.0) % 41.4 MCV (80-95) fL 91.6 MCH (27.0-33.0) pg 30.3 MCHC (32.0-36.0) g/dL 33.1 RDW (11.7-14.6) % 12.8 Plt Count (130-400) x1000/uL 389 MPV (8.0-11.0) fL 8.1 Immature Gran % 0.3 Neutrophils % 69.1 Lymphocytes % 17.5 Monocytes % 11.3 Eosinophils % 1.5 Basophils % 0.3 Absolute Neutrophils (1.2-6.7) k/cumm 9.32 H Absolute Lymphocytes (1.2-3.4) k/cumm 2.36 Absolute Monocytes (0.11-0.7) k/cumm 1.52 H Absolute Eosinophils (0.0-0.7) k/cumm 0.20 Absolute Basophils (0.0-0.2) k/cumm 0.04 Differential Comment Agrees w/ instrument RBC Morphology Normal Sodium (136-145) mmol/L 141 Potassium (3.5-5.1) mmol/L 3.8 Chloride (98-107) mmol/L 107 Carbon Dioxide (21.0-32.0) mmol/L 25.3 Anion Gap (3-11) mmol/L 8.7 BUN (7-18) mg/dL 13 Creatinine (0.55-1.02) mg/dL 0.99 Estimated GFR/1.73 m2 (mL/min/1.73m2) >= 60.00 Glucose (70-100) mg/dL 99 Calcium (8.5-10.1) mg/dL 8.4 L Total Bilirubin (0.2-1.0) mg/dL 0.3 AST (15-37) U/L 11 L ALT (14-59) U/L 22 Alkaline Phosphatase (46-116) U/L 75 Total Protein (6.4-8.2) g/dL 7.2 Albumin (3.4-5.0) g/dL 3.4 Urine Color (Yellow) Yellow Urine Clarity (Clear) Sl cloudy Urine pH (5-8) 6.0 Ur Specific [place] (1.005-1.025) 1.020 Urine Protein (Negative) mg/dL Negative Urine Ketones (Negative) mg/dL Negative Urine Blood (Negative) Small H Urine Nitrite (Negative) Negative Urine Bilirubin (Negative) Negative Urine Urobilinogen (Up TO 0.2) EU/dL 0.2 Ur Leukocyte Esterase (Negative) Negative Urine RBC (0-2) 5-10 H Urine WBC (0-5) HPF 0-2 Ur Epithelial Cells (Negative) HPF Many Urine Crystals (Negative) HPF Negative Urine Bacteria (Negative) HPF Moderate Urine Casts (Negative) LPF Negative Urine Mucus (Negative) Trace Urine Other (Negative) Negative Ur Culture Indicated? No/sq. contamination Urine Glucose (Negative) mg/dL Negative HPI <Wolf Lr NP - Last Filed: 01/13/19 16:31> General Mode of arrival: ambulatory . Date/Time Provider Initiated Documentation: 01/12/19 14:05 . Limitations to Documentation: no limitations . Information obtained by: patient . History of Present Illness 28 year old F presents to the emergency department with the chief complaint of Abdominal pain, vaginal bleeding, with intensity rated at 9. Quality is described as sharp, and is localized to the abdomen and right (Suprapubic). Patient started experiencing this day(s) (1) and it has been constant. No relieving factors improve symptom(s), No exacerbating factors reported . Patient notes no other symptoms.. 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 JIM: 3 Review of Systems <Wolf Lr NP - Last Filed: 01/13/19 16:31> Constitutional Denies chills, Denies fever(s) and Denies malaise Cardiovascular Denies chest pain and Denies dyspnea Respiratory Denies cough and Denies dyspnea Gastrointestinal Reports abdominal pain (Right lower), Denies nausea and Denies vomiting Genitourinary Reports as per HPI, Reports abnormal vaginal bleeding, Denies urinary frequency, Denies dysuria, Denies sexual dysfunction, Denies flank pain, Denies vaginal discharge and Denies vaginal odor PFSH <Wolf Lr NP - Last Filed: 01/13/19 16:31> Medical History (Updated 01/12/19 @ 18:21 by Jany Pham MD) Abnormal Pap smear of cervix (Acute) 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 Repeat LEEP CIN2 with focally positive margins. Will repeat Pap in one year. DALLAS II (cervical intraepithelial neoplasia II) (Resolved) 11/2017 LEEP with margins + for CIN2. 01/2018 repeat LEEP: CIN2 extending to margins. Pt counseled repeat Pap in one year. Hydrosalpinx (Acute) Tobacco use (Acute) counseled to quit. Surgical History H/O LEEP (Acute) 11/2017 CIN2. + Margins. 02/02/18 CIN2. Social History (Updated 01/12/19 @ 18:06 by Jany Pham MD) Smoking/Tobacco Use Status: Former Tobacco Use Counseling given: provider counseling and counseling >3 minutes Alcohol Intake: current Alcohol Intake frequency: a few times a month Alcohol type: beer and wine Details: MONTHLY OR LESS Drug use: Never Substance use type: does not use Household members: children and other Details: Cameron. Clinton. Number of Children: 2 current occupation: [employer] Sexually active: Yes Do you feel safe at home: Yes Do you feel safe in your relationship?: Yes Female Reproductive History Menstrual control method: vaginal ring History History 2 Para 2 Hx # Term Pregnancies 2 Multiple births Hx # Pregnancies Ectopic pregnancies AB induced Hx Number of Living Children AB spontaneous Exam <Wolf Lr NP - Last Filed: 01/13/19 16:31> Const General: cooperative, healthy appearing, comfortable, no acute distress, not diaphoretic and not ill appearing Nutritional Appearance: average body habitus Orientation: alert, awake and oriented x3 Resp Effort & Inspection: normal respiratory effort and able to speak in complete sentences Auscultation: clear to auscultation bilaterally Cardio Rate: regular rate and not tachycardic Rhythm: regular rhythm Heart Sounds: S1 normal and S2 normal GI Inspection: normal to inspection Palpation: soft, no aortic enlargement, not firm, guarding in the RLQ, no hernias, no masses, no pulsatile masses and tender suprapubicly (Right sided more than left); not at McBurney's point, Morrison's sign negative and Rovsing's sign negative Auscultation: normal bowel sounds Skin General skin exam: no rashes or lesions noted Neuro General: alert, awake, oriented x3, tone normal and moves all extremities Course <Wolf Lr NP - Last Filed: 01/13/19 16:31> Vital Signs Temperature 36.8 C 01/12/19 14:00 Pulse 104 H 01/12/19 14:00 Respiratory Rate 16 01/12/19 14:00 Blood Pressure 109/64 01/12/19 14:00 Pulse Oximetry 97 01/12/19 14:00 Temperature 36.8 C 01/12/19 14:00 Temperature Source Skin 01/12/19 14:00 Pulse 104 H 01/12/19 14:00 Respiratory Rate 16 01/12/19 14:00 Respiratory Effort Non-Labored 01/12/19 14:04 Blood Pressure 109/64 01/12/19 14:00 Blood Pressure Position Sitting 01/12/19 14:00 Pulse Oximetry 97 01/12/19 14:00 Oxygen Delivery Method Room Air 01/12/19 14:00 Oxygen Flow Rate 0 01/12/19 14:00 Pain Level 10 01/12/19 14:11 Lab/Test Results Lab/Test Results: Laboratory Tests Range/Units 01/12/19 14:08 Urine Color (Yellow) Yellow Urine Clarity (Clear) Sl cloudy Urine pH (5-8) 6.0 Ur Specific [place] (1.005-1.025) 1.020 Urine Protein (Negative) mg/dL Negative Urine Ketones (Negative) mg/dL Negative Urine Blood (Negative) Small H Urine Nitrite (Negative) Negative Urine Bilirubin (Negative) Negative Urine Urobilinogen (Up TO 0.2) EU/dL 0.2 Ur Leukocyte Esterase (Negative) Negative Urine RBC (0-2) 5-10 H Urine WBC (0-5) HPF 0-2 Ur Epithelial Cells (Negative) HPF Many Urine Crystals (Negative) HPF Negative Urine Bacteria (Negative) HPF Moderate Urine Casts (Negative) LPF Negative Urine Mucus (Negative) Trace Urine Other (Negative) Negative Ur Culture Indicated? No/sq. contamination Urine Glucose (Negative) mg/dL Negative POC Urine Test Start: 01/12/19 14:10 Freq: .Urine Test Status: Complete Protocol: Document 01/12/19 14:13 MR (Rec: 01/12/19 14:13 MR [id number]) Test(Urine)-POC POC- Test(urine) Negative POC- Test(urine) Negative Sign Out <Wolf Lr NP - Last Filed: 01/13/19 16:31> Sign Out Data: Sign Out Comment: Patient signed out to Dr. Twila Sebastian pending vaginal exam and vaginal swabs along with consult with woman's wellness as needed. Last updated by Wolf Lr NP at 01/12/19 15:58
[2019-01-12 15:02] LABS: Diff Comment Agrees w/ Instrument; RBC Morphology Normal
[2019-01-12 16:18] VITALS: BP 85/65; PULSE 70; RESP 18; O2SAT 96
[2019-01-12 17:49] VITALS: BP 109/63; PULSE 71; RESP 16; O2SAT 99
--- NOTE | 2019-01-12 18:12 | W.PM.HP.N ---
Date of service: 01/12/19 Time of Service: 18:12 Assessment and Plan (1) Hydrosalpinx: Start date: 01/12/19 Current visit: Yes Status: Acute Symptomatic right hydrosalpinx. Ultrasound findings consistent with contained tubo-ovarian abscess versus paratubal hemorrhagic fluid collection. GC/Chlamydia PCR currently pending. I have reviewed the images and the patient's physical findings and recommended hospitalization for IV antibiotics. Patient will receive cefotetan 2 g every 12 hours and doxycycline 100 mg twice daily. If her condition worsens i.e. increased pain, fever then will consider a operative laparoscopic procedure. Patient is agreeable to the plan. (2) Tobacco use: Current visit: No Status: Acute Will provide nicotine withdrawal treatment during her hospitalization. History of Present Illness Chief Complaint: Right lower quadrant pain Consults Consult date: 01/12/19 Requesting physician: Twila Sebastian [facility] Medical History Abnormal Pap smear of cervix (Acute) DALLAS II (cervical intraepithelial neoplasia II) (Resolved) Tobacco use (Acute) Surgical History H/O LEEP (Acute) Social History (Updated 01/12/19 @ 18:06 by Jany Pham MD) Smoking/Tobacco Use Status: Former Tobacco Use Counseling given: provider counseling and counseling >3 minutes Alcohol Intake: current Alcohol Intake frequency: a few times a month Alcohol type: beer and wine Details: MONTHLY OR LESS Drug use: Never Substance use type: does not use Household members: children and other Details: Cameron. [place]. Number of Children: 2 current occupation: [employer] Sexually active: Yes Do you feel safe at home: Yes Do you feel safe in your relationship?: Yes Female Reproductive History Menstrual control method: vaginal ring History History 2 Para 2 Hx # Term Pregnancies 2 Multiple births Hx # Pregnancies Ectopic pregnancies AB induced Hx Number of Living Children AB spontaneous Meds Home Medications Medication Instructions Recorded Confirmed Type etonogestrel-ethinyl estradiol 1 vag ring VG 1 q 3 weeks #3 01/02/19 01/12/19 Rx 0.12 mg -0.015 mg/24 hr vaginal vag.ring ring Allergies Allergy/AdvReac Type Severity Reaction Status Date / Time No Known Allergies Allergy Unverified 01/12/19 14:05 Exam Narrative Exam Narrative: Patient is a 28-year-old G2, P2 female currently using the NuvaRing for contraception who presented to the emergency department at [facility] with complaints of severe sharp right lower quadrant pain beginning last evening. Patient described the pain as a 7 out of 10 for the past 12 hours. Pain is worse with lying down and improved with standing. Review of systems was negative for fever chills nausea or vomiting. No recent vaginal discharge. Imaging studies showed approximately 5 cm right hydrosalpinx in proximity to the right ovary. Minimal pelvic free fluid normal left adnexa and uterus. My impression is that most likely diagnosis is a tubo-ovarian abscess. Based on the physical findings and images I feel that the abscess is amenable to IV antibiotics. Const General: no acute distress (Lying on the guney dorsal supine position, converses easily) Nutritional Appearance: average body habitus Orientation: alert, awake and oriented x3 Resp Effort & Inspection: normal respiratory effort Auscultation: clear to auscultation bilaterally Cardio Rate: regular rate Rhythm: regular rhythm GI Inspection: normal to inspection Palpation: soft, no hepatosplenomegaly, guarding in the RLQ (with palpation. No mass appreciated.) and tender in the RLQ and in the RUQ Auscultation: normal bowel sounds General: deferred (bimanual exam had been performed earlier in ED. confirmed u/s findings.) Results Labs : 01/12/19 14:35 01/12/19 14:35 Laboratory Results - last 24 hr 01/12/19 01/12/19 01/12/19 14:08 14:35 14:35 WBC 13.49 H RBC 4.52 Hgb 13.7 Hct 41.4 MCV 91.6 MCH 30.3 MCHC 33.1 RDW 12.8 Plt Count 389 MPV 8.1 Immature Gran % 0.3 Neutrophils % 69.1 Lymphocytes % 17.5 Monocytes % 11.3 Eosinophils % 1.5 Basophils % 0.3 Absolute Neutrophils 9.32 H Absolute Lymphocytes 2.36 Absolute Monocytes 1.52 H Absolute Eosinophils 0.20 Absolute Basophils 0.04 Differential Comment Agrees w/ instrument RBC Morphology Normal Sodium 141 Potassium 3.8 Chloride 107 Carbon Dioxide 25.3 Anion Gap 8.7 BUN 13 Creatinine 0.99 Estimated GFR/1.73 m2 >= 60.00 Glucose 99 Calcium 8.4 L Total Bilirubin 0.3 AST 11 L ALT 22 Alkaline Phosphatase 75 Total Protein 7.2 Albumin 3.4 Urine Color Yellow Urine Clarity Sl cloudy Urine pH 6.0 Ur Specific [place] 1.020 Urine Protein Negative Urine Ketones Negative Urine Blood Small H Urine Nitrite Negative Urine Bilirubin Negative Urine Urobilinogen 0.2 Ur Leukocyte Esterase Negative Urine RBC 5-10 H Urine WBC 0-2 Ur Epithelial Cells Many Urine Crystals Negative Urine Bacteria Moderate Urine Casts Negative Urine Mucus Trace Urine Other Negative Ur Culture Indicated? No/sq. contamination Urine Glucose Negative Last Vital Signs Temp 98.2 F 01/12/19 14:00 Pulse 71 01/12/19 17:49 Resp 16 01/12/19 17:49 BP 109/63 01/12/19 17:49 Pulse Ox 99 01/12/19 17:49
[2019-01-12] MEDS: oxyCODONE 5 mg/Acetaminophen 325 mg TAB PO ×2 (18:27→18:29)
[2019-01-12] MEDS: Ondansetron 4 MG/2 ML VIAL IVP (18:30)
[2019-01-12 18:36] VITALS: BP 109/64; PULSE 104; RESP 16; TEMP 36.8; O2SAT 99
[2019-01-12 19:02] VITALS: BP 101/64; PULSE 75; RESP 16; TEMP 36.6; O2SAT 99
[2019-01-12] MEDS: Lactated Ringers 1,000 ML 125 ML IV (19:34)
[2019-01-12] MEDS: Normal Saline Flush 10 ML SYR IVP (19:35)
[2019-01-12] MEDS: Doxycycline Hyclate 100 MG CAP PO (19:55)
[2019-01-12] MEDS: Ketorolac 30 MG/ML VIAL IVP (19:55)
[2019-01-12 21:16] VITALS: BP 101/67; PULSE 71; RESP 18; TEMP 36.1; O2SAT 99
[2019-01-13] MEDS: Normal Saline Flush 10 ML SYR IVP ×2 (02:00→10:02)
[2019-01-13] MEDS: Ketorolac 30 MG/ML VIAL IVP ×3 (02:00→13:15)
[2019-01-13] MEDS: Lactated Ringers 1,000 ML 125 ML IV ×2 (03:24→10:02)
[2019-01-13 06:52] LABS: HGB 11.3 g/dL (12.0-15.5); Mean Corp. HGB Concentration 32.3 g/dL (32.0-36.0); Mean Corpuscular Volume 92.8 fL (80-95); Mean Platelet Volume 8.4 fL (8.0-11.0); Platelet Count 323 x1000/uL (130-400); RBC 3.77 m/cumm (4.00-5.20); RBC Distribution Width 12.8 % (11.7-14.6)
[2019-01-13 07:10] VITALS: BP 93/59; PULSE 70; RESP 16; TEMP 36.1; O2SAT 97
[2019-01-13] MEDS: Doxycycline Hyclate 100 MG CAP PO ×2 (08:06→19:38)
[2019-01-13] MEDS: oxyCODONE 5 mg/Acetaminophen 325 mg TAB PO ×2 (08:06→18:17)
--- NOTE | 2019-01-13 11:35 | PHARADMIT ---
Admission Pharmacy Clinical Review R HYDROSALPINX Code Status Full Code Current Weight 49.895 kg Renally Cleared and Narrow Therapeutic Index Meds CrCl~67 ml/min QTc Value / Action Taken BP Control, Fever BP SOFT 93/59 Afebrile pain 2/10 (improved) Electrolytes reviewed WNL DVT Prophylaxis none....mobilizing Opiate Usage / Scheduled Bowel Regimen Ordered Percocet/no bowel meds Plt/SCr for Heparin / Enoxaparin Plt 323 SCr 0.99 INR for Warfarin H/H stable, WBC/Bands H/H 11.3/35.0 WBC 9.7 (down from 13.5) Antibiotic appropriateness Cefotetan IV Q12h, oral Doxy Cultures and Sensitivities Vaginal culture: Gardnerella positive Surgical ABX d/c within 24 hr DM control / Insulin Dosing Heart Failure (Check EF%) (CASSIA's, B-Block, Diuretics) IV to PO Switch Home Meds Reviewed Pt's own Nuvaring....in place Home Meds Not Ordered Comments Nicotine patch If pain not resolved or fevers.....may need laproscopic procedure
--- NOTE | 2019-01-13 14:16 | CHAPLAIN ---
I had a short visit with Nelia. She said she was feeling better and was expecting friends and family to visit later today. I explained my role and offered support.
[2019-01-13 15:13] VITALS: BP 100/66; PULSE 57; RESP 18; TEMP 36.8; O2SAT 99
--- NOTE | 2019-01-13 16:06 | INITIAL_ITS ---
Care Management Initial Assess REASON FOR HOSPITALIZATION:: R Hydrosalpinx PAST MEDICAL HISTORY/PAST SURGICAL HISTORY:: No PMH PREVIOUS FUNCTIONAL STATUS/SOCIAL/FAMILY SUPPORTS:: Nelia resides in [place] with her significant other and son, she works at [employer] and is independent at baseline. She reports a supportive network of family and friends. CURRENT FUNCTIONAL STATUS:: Nelia was lying in bed, her son in the bed with her. She reported her pain was being managed and she felt confident in her treatment plan. She was pleasant in interaction. ADVANCE DIRECTIVES:: None on file at [facility]. Has patient been provided with information about the portal?: Yes Did the patient sign up for the portal?: No CODE STATUS:: Full Code INSURANCE COVERAGE / FINANCIAL ISSUES:: Medicaid CURRENT HOME/COMMUNITY SERVICES/EQUIPMENT:: No current services or equipment. PRIMARY CARE PHYSICIAN:: Svitlana Gilbert POTENTIAL DISCHARGE NEEDS:: Follow up appointments. PATIENT/FAMILY EDUCATION NEEDS:: Review of discharge instructions, discuss Ask Me Three. ANTICIPATED BARRIERS TO DISCHARGE:: None identified at this time. TRANSPORTATION:: Via private vehicle. PLAN:: Nelia will return home when ready per MD, no additional services anticipated at this time. Per MD, conservative methods of IV ABX are being attempted with a period of monitoring. Anticipate surgical intervention if Nelia does progress, per MD. CM continues to follow.
--- NOTE | 2019-01-13 17:17 | PGE_ITS ---
Date of Service Date of service: 01/13/19 Time of Service: 17:18 Assessment and Plan (1) Right lower quadrant pain: Current visit: Yes Status: Acute Sl improved from yesterday but not completely resolved. I recommended another day with IV ABX and consider discharge to home in am if VSS and pt continues to have less pain. I advised that she should refrain from work for several days after she is discharged to home taking oral antibiotics. (2) Hydrosalpinx: Current visit: Yes Status: Acute Continue present management. Pt aware that she will require 2w course of outpt PO ABX after discharge. Subjective Patient reports: still having pain, pain is less (than yesterday) and flatus Interval history since last seen: Used Toradol overnight for pain control. OOB during the day ambulating to the toilet. More uncomfortable when standing rather than lying. Exam Narrative Exam Narrative: HD2. Admitted 01/12/19 for R sided hydrosalpinx, possible tubal abscess. Afebrile since admission. VSS. Not in distress with RLQ pain. Pt states that she is feeling better but not completely better. Continues with IV Cefotetan and PO Doxycycline. Const General: no acute distress Nutritional Appearance: average body habitus Orientation: alert, awake and oriented x3 Resp Effort & Inspection: normal respiratory effort GI Inspection: abdominal wall ecchymosis Palpation: soft and tender (RLQ w/o guarding.) General: deferred Back/Spine/Pelvis Back: no CVA tenderness Skin General skin exam: no rashes or lesions noted Extrem General: normal to inspection, full ROM and normal capillary refill Psych Appearance: grossly normal Objective Objective Clinical Data: Abnormal lab results 01/13/19 Range/Units 06:00 RBC 3.77 L (4.00-5.20) m/cumm Hgb 11.3 L D (12.0-15.5) g/dL Hct 35.0 L (36.0-46.0) % Vital Signs Temperature 98.2 F 01/13/19 15:13 Temperature Source Tympanic 01/13/19 15:13 Pulse 57 L 01/13/19 15:13 Pulse Rhythm Regular 01/13/19 08:28 Respiratory Rate 18 01/13/19 15:13 Respiratory Effort Non-Labored 01/13/19 08:28 Respiratory Depth Normal 01/13/19 08:28 Respiratory Pattern Normal 01/13/19 08:28 Blood Pressure 100/66 01/13/19 15:13 Blood Pressure Mean 78 01/12/19 17:49 Blood Pressure Position Sitting 01/12/19 14:00 Pulse Oximetry 99 01/13/19 15:13 Oxygen Delivery Method Room Air 01/13/19 15:13 Oxygen Flow Rate 0 01/13/19 15:13 Pain Level 2 01/13/19 14:15 Intake & Output 01/12/19 01/13/19 01/13/19 23:59 11:59 23:59 Intake Total 100 / 100 2128.334 / 3305.001 1176.667 / 3305.001 Output Total 200 / 200 1550 / 1550 Balance -100 / -100 578.334 / 2622.978 4942.667 / 1755.001 Weight 109 lb 15.994 oz Intake: IV 100 / 100 1928.334 / 2745.001 816.667 / 2745.001 Oral 200 / 560 360 / 560 Output: Urine 200 / 200 1550 / 1550 Other: Urine Color Yellow Yellow Urine Appearance Clear Clear Urine Odor None Voiding Methods Toilet Toilet Laboratory Results WBC 9.70 k/cumm (4.4-10.8) 01/13/19 06:00 RBC 3.77 m/cumm (4.00-5.20) L 01/13/19 06:00 Hgb 11.3 g/dL (12.0-15.5) L D 01/13/19 06:00 Hct 35.0 % (36.0-46.0) L 01/13/19 06:00 MCV 92.8 fL (80-95) 01/13/19 06:00 MCH 30.0 pg (27.0-33.0) 01/13/19 06:00 MCHC 32.3 g/dL (32.0-36.0) 01/13/19 06:00 RDW 12.8 % (11.7-14.6) 01/13/19 06:00 Plt Count 323 x1000/uL (130-400) 01/13/19 06:00 MPV 8.4 fL (8.0-11.0) 01/13/19 06:00 Immature Gran % 0.3 01/12/19 14:35 69.1 01/12/19 14:35 17.5 01/12/19 14:35 11.3 01/12/19 14:35 1.5 01/12/19 14:35 0.3 01/12/19 14:35 Absolute Neutrophils 9.32 k/cumm (1.2-6.7) H 01/12/19 14:35 Absolute Lymphocytes 2.36 k/cumm (1.2-3.4) 01/12/19 14:35 Absolute Monocytes 1.52 k/cumm (0.11-0.7) H 01/12/19 14:35 Absolute Eosinophils 0.20 k/cumm (0.0-0.7) 01/12/19 14:35 Absolute Basophils 0.04 k/cumm (0.0-0.2) 01/12/19 14:35 Agrees w/ instrument 01/12/19 14:35 RBC Morphology Normal 01/12/19 14:35 Sodium 141 mmol/L (136-145) 01/12/19 14:35 Potassium 3.8 mmol/L (3.5-5.1) 01/12/19 14:35 Chloride 107 mmol/L (98-107) 01/12/19 14:35 Carbon Dioxide 25.3 mmol/L (21.0-32.0) 01/12/19 14:35 8.7 mmol/L (3-11) 01/12/19 14:35 BUN 13 mg/dL (7-18) 01/12/19 14:35 0.99 mg/dL (0.55-1.02) 01/12/19 14:35 >= 60.00 (mL/min/1.73m2) 01/12/19 14:35 Glucose 99 mg/dL (70-100) 01/12/19 14:35 Calcium 8.4 mg/dL (8.5-10.1) L 01/12/19 14:35 0.3 mg/dL (0.2-1.0) 01/12/19 14:35 AST 11 U/L (15-37) L 01/12/19 14:35 ALT 22 U/L (14-59) 01/12/19 14:35 75 U/L (46-116) 01/12/19 14:35 7.2 g/dL (6.4-8.2) 01/12/19 14:35 3.4 g/dL (3.4-5.0) 01/12/19 14:35 Yellow (Yellow) 01/12/19 14:08 Sl cloudy (Clear) 01/12/19 14:08 6.0 (5-8) 01/12/19 14:08 Ur Specific [place] 1.020 (1.005-1.025) 01/12/19 14:08 Negative mg/dL (Negative) 01/12/19 14:08 Negative mg/dL (Negative) 01/12/19 14:08 Small (Negative) H 01/12/19 14:08 Negative (Negative) 01/12/19 14:08 Negative (Negative) 01/12/19 14:08 0.2 EU/dL (Up TO 0.2) 01/12/19 14:08 Ur Leukocyte Esterase Negative (Negative) 01/12/19 14:08 5-10 (0-2) H 01/12/19 14:08 0-2 HPF (0-5) 01/12/19 14:08 Ur Epithelial Cells Many HPF (Negative) 01/12/19 14:08 Negative HPF (Negative) 01/12/19 14:08 Moderate HPF (Negative) 01/12/19 14:08 Negative LPF (Negative) 01/12/19 14:08 Trace (Negative) 01/12/19 14:08 Negative (Negative) 01/12/19 14:08 Ur Culture Indicated? No/sq. contamination 01/12/19 14:08 Negative mg/dL (Negative) 01/12/19 14:08
[2019-01-13] MEDS: Ibuprofen 600 MG TAB PO (19:38)
[2019-01-13 21:52] VITALS: BP 102/64; PULSE 66; RESP 19; TEMP 36.1; O2SAT 100
--- NOTE | 2019-01-14 06:50 | PGE_ITS ---
Date of Service Date of service: 01/14/19 Time of Service: 06:51 Assessment and Plan (1) Hydrosalpinx: Current visit: Yes Status: Acute Will discharge to home with PO abx for 2w. I will order pelvic u/s to be performed prior to her [facility] office visit next week. (2) Right lower quadrant pain: Current visit: Yes Status: Acute Ibuprofen 600mg every 6hrs as needed for pain, Percocet for breatkthru pain. Subjective Patient reports: still having pain (5 on scale of 1-10) and other (menses Mod flow. BRB. Has NuvaRing in place) Exam Narrative Exam Narrative: HD#3 with R hydrosalpinx. Probable TOA. Day 3 Cefotetan 2g and Doxycycline 100mg PO twice daily. Pt has been afebrile since admission. Pain in RLQ treated with NSAIDs while at rest. Pt has required Percocet when ambulatory/OOB for extensive periods of time. I feel that she is stable enough to be discharged to home with continued PO abx for 2w. Pt agreeable to the plan. Plan to return to work with light duty and f/u next week in [facility] after repeat pelvic u/s performed prior to office visit. Const General: no acute distress Nutritional Appearance: average body habitus Orientation: alert, awake and not oriented x3 Resp Effort & Inspection: normal respiratory effort Auscultation: not clear to auscultation bilaterally Cardio Rate: regular rate Rhythm: regular rhythm GI Palpation: soft, guarding (none) and tender (RLQ) General: deferred Back/Spine/Pelvis Back: No no CVA tenderness Skin General skin exam: no rashes or lesions noted Extrem General: normal to inspection, full ROM and normal capillary refill Objective Objective Clinical Data: Abnormal lab results 01/13/19 Range/Units 06:00 RBC 3.77 L (4.00-5.20) m/cumm Hgb 11.3 L D (12.0-15.5) g/dL Hct 35.0 L (36.0-46.0) % Vital Signs Temperature 97.0 F L 01/13/19 21:52 Temperature Source Tympanic 01/13/19 21:52 Pulse 66 01/13/19 21:52 Pulse Rhythm Regular 01/13/19 19:35 Respiratory Rate 01/13/19 21:52 Respiratory Effort Non-Labored 01/13/19 19:35 Respiratory Depth Normal 01/13/19 19:35 Respiratory Pattern Normal 01/13/19 19:35 Blood Pressure 102/64 01/13/19 21:52 Blood Pressure Mean 78 01/12/19 17:49 Blood Pressure Position Sitting 01/12/19 14:00 Pulse Oximetry 100 01/13/19 21:52 Oxygen Delivery Method Room Air 01/13/19 21:52 Oxygen Flow Rate 0 01/13/19 21:52 Pain Level 3 01/13/19 21:52 Intake & Output 01/13/19 01/13/19 01/14/19 11:59 23:59 11:59 Intake Total 2128.334 / 3915.001 1786.667 / 3915.001 Output Total 1550 / 1550 Balance 578.334 / 2365.001 1786.667 / 2365.001 Intake: IV 1928.334 / 2855.001 926.667 / 2855.001 Oral 200 / 1060 860 / 1060 Output: Urine 1550 / 1550 Other: Urine Color Yellow Yellow Urine Appearance Clear Clear Clear Urine Odor None Normal Comment pt up to the bathroom independently Voiding Methods Toilet Toilet Laboratory Results WBC 9.70 k/cumm (4.4-10.8) 01/13/19 06:00 RBC 3.77 m/cumm (4.00-5.20) L 01/13/19 06:00 Hgb 11.3 g/dL (12.0-15.5) L D 01/13/19 06:00 Hct 35.0 % (36.0-46.0) L 01/13/19 06:00 MCV 92.8 fL (80-95) 01/13/19 06:00 MCH 30.0 pg (27.0-33.0) 01/13/19 06:00 MCHC 32.3 g/dL (32.0-36.0) 01/13/19 06:00 RDW 12.8 % (11.7-14.6) 01/13/19 06:00 Plt Count 323 x1000/uL (130-400) 01/13/19 06:00 MPV 8.4 fL (8.0-11.0) 01/13/19 06:00 Immature Gran % 0.3 01/12/19 14:35 69.1 01/12/19 14:35 17.5 01/12/19 14:35 11.3 01/12/19 14:35 1.5 01/12/19 14:35 0.3 01/12/19 14:35 Absolute Neutrophils 9.32 k/cumm (1.2-6.7) H 01/12/19 14:35 Absolute Lymphocytes 2.36 k/cumm (1.2-3.4) 01/12/19 14:35 Absolute Monocytes 1.52 k/cumm (0.11-0.7) H 01/12/19 14:35 Absolute Eosinophils 0.20 k/cumm (0.0-0.7) 01/12/19 14:35 Absolute Basophils 0.04 k/cumm (0.0-0.2) 01/12/19 14:35 Agrees w/ instrument 01/12/19 14:35 RBC Morphology Normal 01/12/19 14:35 Sodium 141 mmol/L (136-145) 01/12/19 14:35 Potassium 3.8 mmol/L (3.5-5.1) 01/12/19 14:35 Chloride 107 mmol/L (98-107) 01/12/19 14:35 Carbon Dioxide 25.3 mmol/L (21.0-32.0) 01/12/19 14:35 8.7 mmol/L (3-11) 01/12/19 14:35 BUN 13 mg/dL (7-18) 01/12/19 14:35 0.99 mg/dL (0.55-1.02) 01/12/19 14:35 >= 60.00 (mL/min/1.73m2) 01/12/19 14:35 Glucose 99 mg/dL (70-100) 01/12/19 14:35 Calcium 8.4 mg/dL (8.5-10.1) L 01/12/19 14:35 0.3 mg/dL (0.2-1.0) 01/12/19 14:35 AST 11 U/L (15-37) L 01/12/19 14:35 ALT 22 U/L (14-59) 01/12/19 14:35 75 U/L (46-116) 01/12/19 14:35 7.2 g/dL (6.4-8.2) 01/12/19 14:35 3.4 g/dL (3.4-5.0) 01/12/19 14:35 Yellow (Yellow) 01/12/19 14:08 Sl cloudy (Clear) 01/12/19 14:08 6.0 (5-8) 01/12/19 14:08 Ur Specific [place] 1.020 (1.005-1.025) 01/12/19 14:08 Negative mg/dL (Negative) 01/12/19 14:08 Negative mg/dL (Negative) 01/12/19 14:08 Small (Negative) H 01/12/19 14:08 Negative (Negative) 01/12/19 14:08 Negative (Negative) 01/12/19 14:08 0.2 EU/dL (Up TO 0.2) 01/12/19 14:08 Ur Leukocyte Esterase Negative (Negative) 01/12/19 14:08 5-10 (0-2) H 01/12/19 14:08 0-2 HPF (0-5) 01/12/19 14:08 Ur Epithelial Cells Many HPF (Negative) 01/12/19 14:08 Negative HPF (Negative) 01/12/19 14:08 Moderate HPF (Negative) 01/12/19 14:08 Negative LPF (Negative) 01/12/19 14:08 Trace (Negative) 01/12/19 14:08 Negative (Negative) 01/12/19 14:08 Ur Culture Indicated? No/sq. contamination 01/12/19 14:08 Negative mg/dL (Negative) 01/12/19 14:08
[2019-01-14 07:00] VITALS: BP 98/58; PULSE 64; RESP 16; TEMP 36.8; O2SAT 97
--- NOTE | 2019-01-14 07:06 | W.PM.DS.N ---
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 IV Cefotetan and PO Doxycycline until discharge. Pain improved but not completely resolved. Discharge HD# with PO antibiotics for 2w. Will be allowed to return to work with light duties. Plan repeat pelvic u/s in one week prior to [facility] visit. Home Meds and New Rx's Prescriptions: No Action NuvaRing 0.12-0.015 mg/24 hr ring 1 vag ring VG 1 q 3 weeks Qty: 3 RF: 4 Discharge Instructions Additional Instructions: Take Metronidazole 500mg twice daily for 2 weeks along with Doxycycline 100mg twice daily for 2 weeks. These medications are important for you to take but you may develop nausea and/or diarrhea taking them. Do not stop the medication without notifying the providers at [facility]. You will be given an appointment time for a repeat ultrasound of the pelvis prior to your next office visit with Dr. Pham next week. Call [phone] and ask to speak to the [employer] provider irrigation worker if you develop a temperature over 101.5, nausea, vomiting or pain not relieved by the Ibuprofen or Percocet. Stand Alone Forms: Nursing Discharge Form Referrals: Jany Pham MD [ [facility] STAFF PHYSICIAN] - Activity:: may return to work with light duty Activity:: no intercourse Equipment/Supplies:: No Equipment Needed Diet:: As Tolerated Exam Narrative Exam Narrative: HD#3 with R hydrosalpinx. Probable TOA. Day 3 Cefotetan 2g and Doxycycline 100mg PO twice daily. Pt has been afebrile since admission. Pain in RLQ treated with NSAIDs while at rest. Pt has required Percocet when ambulatory/OOB for extensive periods of time. I feel that she is stable enough to be discharged to home with continued PO abx for 2w. Pt agreeable to the plan. Plan to return to work with light duty and f/u next week in [facility] after repeat pelvic u/s performed prior to office visit. Const General: no acute distress Nutritional Appearance: average body habitus Orientation: alert, awake and not oriented x3 Resp Effort & Inspection: normal respiratory effort Auscultation: not clear to auscultation bilaterally Cardio Rate: regular rate Rhythm: regular rhythm GI Palpation: soft, guarding (none) and tender (RLQ) General: deferred Back/Spine/Pelvis Back: No no CVA tenderness Skin General skin exam: no rashes or lesions noted Extrem General: normal to inspection, full ROM and normal capillary refill DS: Data Vitals/I&O Vitals and I&O: Vital Signs Temperature 97.0 F L 01/13/19 21:52 Temperature Source Tympanic 01/13/19 21:52 Pulse 66 01/13/19 21:52 Pulse Rhythm Regular 01/13/19 19:35 Respiratory Rate 19 01/13/19 21:52 Respiratory Effort Non-Labored 01/13/19 19:35 Respiratory Depth Normal 01/13/19 19:35 Respiratory Pattern Normal 01/13/19 19:35 Blood Pressure 102/64 01/13/19 21:52 Blood Pressure Mean 78 01/12/19 17:49 Blood Pressure Position Sitting 01/12/19 14:00 Pulse Oximetry 100 01/13/19 21:52 Oxygen Delivery Method Room Air 01/13/19 21:52 Oxygen Flow Rate 0 01/13/19 21:52 Pain Level 3 01/13/19 21:52 Intake & Output 01/13/19 01/13/19 01/14/19 11:59 23:59 11:59 Intake Total 2128.334 / 3915.001 1786.667 / 3915.001 Output Total 1550 / 1550 Balance 578.334 / 2365.001 1786.667 / 2365.001 Intake: IV 1928.334 / 2855.001 926.667 / 2855.001 Oral 200 / 1060 860 / 1060 Output: Urine 1550 / 1550 Other: Urine Color Yellow Yellow Urine Appearance Clear Clear Clear Urine Odor None Normal Comment pt up to the bathroom independently Voiding Methods Toilet Toilet [facility] Medical History (Updated 01/13/19 @ 17:24 by Jany Pham MD) Abnormal Pap smear of cervix (Acute) 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 Repeat LEEP CIN2 with focally positive margins. Will repeat Pap in one year. [place] II (cervical intraepithelial neoplasia II) (Resolved) 11/2017 LEEP with margins + for CIN2. 01/2018 repeat LEEP: CIN2 extending to margins. Pt counseled repeat Pap in one year. Hydrosalpinx (Acute) Right lower quadrant pain (Acute) Tobacco use (Acute) counseled to quit. Surgical History H/O LEEP (Acute) 11/2017 CIN2. + Margins. 02/02/18 CIN2. Social History (Updated 01/12/19 @ 18:06 by Jany Pham MD) Smoking/Tobacco Use Status: Former Tobacco Use Counseling given: provider counseling and counseling >3 minutes Alcohol Intake: current Alcohol Intake frequency: a few times a month Alcohol type: beer and wine Details: MONTHLY OR LESS Drug use: Never Substance use type: does not use Household members: children and other Details: Cameron. [place]. Number of Children: 2 current occupation: [employer] Sexually active: Yes Do you feel safe at home: Yes Do you feel safe in your relationship?: Yes Female Reproductive History Menstrual control method: vaginal ring History History 2 Para 2 Hx # Term Pregnancies 2 Multiple births Hx # Pregnancies Ectopic pregnancies AB induced Hx Number of Living Children AB spontaneous
[2019-01-14] MEDS: Doxycycline Hyclate 100 MG CAP PO (07:53)
[2019-01-14] MEDS: Normal Saline Flush 10 ML SYR IVP (07:54)
--- NOTE | 2019-01-14 09:25 | PDOC.CMDIS ---
LACE Index Scoring Tool - Questions: Length of Stay (in days): 2 Acuity (Admit via E.D.?): Yes E.D. Visits: 6 - Answers: Total Score: 9 Risk of Readmission: Low Risk Care Management Discharge Reason for Hospitalization: R Hydrosalpinx Discharge Plan: Nelia will return home when ready per MD. She will follow up with Dr. Chaudhry and her plan of care as prescribed. She will transport via private vehicle with family. Patient/Family Education Needs: Review discharge instructions, discuss Ask Me Three.
[2019-01-14 13:54] LABS: Chlamydia Result Negative; GC Result Negative; Specimen Description CERVIX
== END 2019-01-14 10:10 | disposition home or self-care (01) ==
LOC: ER 18:45 → MS 19:30
PROVIDERS: Nurse Practitioner Family; Admitting Provider Obstetrics & Gynecology Gynecology; Emergency Provider Physician Assistant; PCP Nurse Practitioner; Visit Provider Obstetrics & Gynecology Gynecology
DX: N70.11 Chronic salpingitis (principal); R10.31 Right lower quadrant pain; Z72.0 Tobacco use; N76.0 Acute vaginitis; B96.89 Other specified bacterial agents as the cause of diseases classified elsewhere
CPT/HCPCS: 36415; 80053; 81025; 85027; 87491; 87591; 96374; 96375; 99221; 99231; 99238; 99285; 76830; 76856; 81003; 81015; 85025; 87480; 87510; 87660; 99284; G0378; J1885; J2405

== ENCOUNTER 2019-01-15 00:41 | Outpatient (CLI) | payer MEDICAID, SELFPAY ==
--- NOTE | 2019-01-15 13:00 | DI.US_ITS ---
SYMPTOM/DIAGNOSIS: F/U RT HYDROSALPINX, RLQ PAIN, R10.31, CHRONIC SALPINGITIS, N70.11 PELVIC ULTRASOUND: Comparison is made with 01/12/19. The uterus is retroverted. It measures 7.8 cm. long by 5.8 cm. AP by 5.7 cm. transverse. The endometrial stripe is within normal limits at 3 mm. No uterine mass is seen. The left ovary measures 3.4 by 1.4 by 1.2 cm. It is grossly unremarkable with normal blood flow. No evidence of torsion. The right ovary measures 3.6 by 1.3 by 1.4 cm. It is normal in appearance and shows normal blood flow. There is again seen a complex linear, thick walled structure interposed between the right ovary and the uterus. Internal debris and mild wall thickening is seen. It measures 5.5 by 2.6 by 2 cm. compared with 5.7 by 2.9 by 3 cm. There is a small amount of fluid seen in the cul-de-sac. IMPRESSION: Persistent stable complex cystic structure in the right adnexa. Differential considerations include a hydro or pyosalpinx. Tubo-ovarian abscess cannot be excluded.
== END 2019-01-15 01:01 ==
PROVIDERS: PCP Nurse Practitioner; Visit Provider Obstetrics & Gynecology Gynecology
DX: R10.31 Right lower quadrant pain (principal); N70.11 Chronic salpingitis; N85.4 Malposition of uterus; N83.8 Other noninflammatory disorders of ovary, fallopian tube and broad ligament
CPT/HCPCS: 76830; 76856

== ENCOUNTER 2019-01-27 00:14 | Outpatient (CLI) | payer MEDICAID, SELFPAY ==
--- NOTE | 2019-01-27 12:43 | DI.US_ITS ---
SYMPTOM/DIAGNOSIS: CHRONIC SALPINGITIS, N70.11, H/O HYDROSALPINX, HYDROSALPINX VS PYOSALPINX PELVIC ULTRASOUND: Pelvic ultrasound was performed transabdominally and transvaginally. Please see the accompanying data sheet for measurements of pelvic structures. Note is again made of an elongated, fluid-filled structure in the right adnexa consistent with previously noted suspected diagnosis of hydrosalpinx or pyosalpinx. Other etiologies not excluded. Little interval change in appearance in comparison with previous examination. The ovaries per se are unremarkable. Little if any vascular flow identified in the complex fluid-filled, elongated mass on the right. Endometrial stripe is about 9 mm in thickness and there appears to be some fluid and heterogenous material in the endometrial cavity; patient's menstrual status requested for correlation. CONCLUSION: Little interval change in appearance of right adnexal elongated, complex, predominantly cystic mass, consider hydrosalpinx or pyosalpinx.
--- NOTE | 2019-01-27 15:44 | DI.US_ITS ---
SYMPTOMS/DIAGNOSIS: CHRONIC SALPINGITIS, N70.11, H/O HYDROSALPINX, HYDROSALPINX VS PYOSALPINX PELVIC ULTRASOUND: Pelvic ultrasound was performed transabdominally and transvaginally. Please see the accompanying data sheet for measurements of pelvic structures. Note is again made of an elongated, fluid-filled structure in the right adnexa consistent with previously noted suspected diagnosis of hydrosalpinx or pyosalpinx. Other etiologies not excluded. Little interval change in appearance in comparison with the previous examination. The ovaries per se are unremarkable. Little if any vascular flow identified in the complex fluid- filled, elongated mass on the right. Endometrial stripe is about 9 mm in thickness and there appears to be some fluid and heterogeneous material in the endometrial cavity; patient's menstrual status requested for correlation. CONCLUSION: Little interval change in appearance of right adnexal elongated, complex, predominantly cystic mass; consider hydrosalpinx or pyosalpinx.
== END 2019-01-27 00:34 ==
PROVIDERS: PCP Nurse Practitioner; Visit Provider Obstetrics & Gynecology Gynecology
DX: N70.11 Chronic salpingitis (principal); R19.09 Other intra-abdominal and pelvic swelling, mass and lump; N85.8 Other specified noninflammatory disorders of uterus
CPT/HCPCS: 76830; 76856

== ENCOUNTER 2019-03-08 10:34 | Emergency (ER) | payer MEDICAID, SELFPAY ==
[2019-03-08] VITALS (13 sets, daily range): BP systolic 85–125; BP diastolic 53–79; PULSE 54–83; RESP 16–18; TEMP 37.3; O2SAT 98–100
--- NOTE | 2019-03-08 10:57 | ED.GENADUL_ITS ---
Discharge Plan Disposition Patient Disposition: HOME Condition: Improving Discharge Details Chief Complaint: Abd Prob Clinical Impression: Right lower quadrant pain Primary Care Provider: Svitlana Gilbert ED Provider: Wolf Lr Home Meds and New Rx's Prescriptions: Continued NuvaRing 0.12-0.015 mg/24 hr ring 1 vag ring VG 1 q 3 weeks Qty: 3 RF: 4 ibuprofen 600 mg tablet 600 mg PO Q6H PRN (Reason: pain) Qty: 20 RF: 0 Discharge Instructions Instructions: Abdominal Pain (ED) Additional Instructions: Please get plenty of rest and avoid strenuous activities, stay well-hydrated, and you may continue to use 600 mg of ibuprofen every 6 hours as needed for pain. Return immediately to the emergency department for any new or significant worsening of symptoms such as persistent vomiting, severe change in pain or discomfort, fever or chills. Otherwise you should follow-up with Dr. Pham's office tomorrow morning for arrangement of follow-up appointment within the next 7 days. Stand Alone Forms: Work Release Referrals: Jany Pham MD [ [facility] STAFF PHYSICIAN] - 1 week (Call the office tomorrow morning for arrangement of appointment) Discharge Data Discharge Date/Time-TO BE ENTERED AT DEPARTURE: 03/08/19 14:43 Medical Decision Making Patient presenting to the emergency department for chief complaint of right lower quadrant pain. Patient states this is similar to previous presentation to the emergency department where she was admitted. Patient states some associated nausea but no vomiting. Physical exam is unremarkable except for some guarding and tenderness to the right lower quadrant. Review of patient records show that patient has chronic right hydrosalpinx and was admitted for 2 days and discharged on antibiotics for 2 weeks with repeat ultrasound showing continued chronic right hydrosalpinx but decreased size after antibiotic use. Plan to check labs, give IV fluids, and treat patient's nausea and pain. Review of labs show a nonspecific leukocytosis and elevated platelet count, CMP is nondiagnostic and urinalysis is negative. Patient is also not . Plan to do CT imaging for evaluation of right lower quadrant pain given the patient still has her appendix this is considered. Given patient's history do feel that ultrasound imaging is also necessary for evaluation of chronic hydrosalpinx. Ultrasound was unable to be performed due to materials engineering technician availability so patient sent for CT imaging. Review of CT imaging and speaking with radiologist shows diffuse mesenteric lymphadenopathy with some proximal bowel wall thickening but is nonspecific. Appendix was reported as normal and previous pelvic swelling and free fluid that was noted on CT done in July had improved and radiologist states more chronic changes but no obvious emergent findings there. Given diffuse lymphadenopathy and bowel wall thickening radiologist does mention possible concern for Giardia and its presentation. Plan to order stool specimen. Given no availability for ultrasound vaginal exam was performed with RN svp group director Georgina Orellana. Patient had very mild right adnexal tenderness, abnormal appearing cervix with whitish discharge. Exam was otherwise unremarkable, no cervical motion tenderness. Patient overall states that she does feel better after the fluids and ketorolac. Did call and speak with Dr. Pham about patient's chronic right hydrosalpinx. She recommended patient to follow-up in the office this week for further discussion of treatment options. Otherwise I do feel that patient is able to be safely discharged with close follow-up. Return precautions were clearly discussed with patient. After discussion of diagnosis and plan of care patient has no further needs, questions, or concerns and states clear understanding to return to the emergency department for any worsening symptoms. HPI General Mode of arrival: ambulatory . Date/Time Provider Initiated Documentation: 03/08/19 10:36 . Limitations to Documentation: no limitations . Information obtained by: patient, RN notes reviewed and old records reviewed . History of Present Illness 28 year old F presents to the emergency department with the chief complaint of Right lower quadrant pain, described as moderate, with intensity rated at 9. Quality is described as sharp, and is localized to the abdomen. Patient started experiencing this hour(s) (2) and it has been constant. No relieving factors improve symptom(s), No exacerbating factors reported . Related Data Home Medications Medication Instructions Recorded Confirmed etonogestrel-ethinyl estradiol 1 vag ring VG 1 q 3 weeks #3 01/02/19 03/09/19 0.12 mg -0.015 mg/24 hr vaginal vag.ring ring ibuprofen 600 mg PO Q6H PRN #20 tab 03/08/19 03/09/19 Previous Rx's Medication Instructions Recorded etonogestrel-ethinyl estradiol 1 vag ring VG 1 q 3 weeks #3 01/02/19 0.12 mg -0.015 mg/24 hr vaginal vag.ring ring ibuprofen 600 mg PO Q6H PRN #20 tab 03/08/19 Allergies Allergy/AdvReac Type Severity Reaction Status Date / Time No Known Allergies Allergy Unverified 03/09/19 13:15 General Stated Complaint: Abd Prob JIM: 3 Review of Systems Constitutional Constitutional: Denies fever(s) Cardiovascular Cardiovascular: Denies chest pain and Denies dyspnea Respiratory Respiratory: Denies dyspnea Gastrointestinal Gastrointestinal: Reports as per HPI, Reports abdominal pain, Denies melena, Denies change in bowel habits, Denies constipation, Reports diarrhea (x 2 days), Reports nausea and Denies vomiting Genitourinary Genitourinary: Denies metrorrhagia, Denies hematuria, Denies dysuria, Denies flank pain, Denies vaginal discharge, Denies vaginal odor and Denies vaginal pruritus Integumentary/Breasts Skin/Breast: Denies rash [facility] History Abnormal Pap smear of cervix (Acute) 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 Repeat LEEP CIN2 with focally positive margins. Will repeat Pap in one year. DALLAS II (cervical intraepithelial neoplasia II) (Resolved) 11/2017 LEEP with margins + for CIN2. 01/2018 repeat LEEP: CIN2 extending to margins. Pt counseled repeat Pap in one year. Hydrosalpinx (Acute) R side. Inpt Abx 01/12-8-. PO Abx x2w. repeat u/s.... Right lower quadrant pain (Acute) Tobacco use (Acute) counseled to quit. Surgical History H/O LEEP (Acute) 11/2017 CIN2. + Margins. 02/02/18 CIN2. History of cholecystectomy (Chronic) Social History Smoking/Tobacco Use Status: Former Tobacco Use Counseling given: provider counseling and counseling >3 minutes Alcohol Intake: current Alcohol Intake frequency: a few times a month Alcohol type: beer and wine Details: MONTHLY OR LESS Drug use: Never Substance use type: does not use Household members: children and other Details: Cameron. [place]. Number of Children: 2 current occupation: [employer] Sexually active: Yes Do you feel safe at home: Yes Do you feel safe in your relationship?: Yes Female Reproductive History Menstrual control method: vaginal ring History History 2 Para 2 Hx # Term Pregnancies 2 Multiple births Hx # Pregnancies Ectopic pregnancies AB induced Hx Number of Living Children AB spontaneous Exam Const General: cooperative Orientation: alert, awake and oriented x3 Resp Effort & Inspection: normal respiratory effort and able to speak in complete sentences Auscultation: clear to auscultation bilaterally Cardio Rate: regular rate Rhythm: regular rhythm Heart Sounds: S1 normal and S2 normal GI Palpation: soft, no hepatosplenomegaly, not firm, guarding in the RLQ, no masses, no pulsatile masses, not rigid, no splenomegaly and tender in the RLQ; not at McBurney's point, Morrison's sign negative and Rovsing's sign negative Auscultation: normal bowel sounds Back/Spine/Pelvis Back: no CVA tenderness Neuro General: alert, awake, oriented x3, gait normal and moves all extremities Course Vital Signs Vital signs: Vital Signs Temperature 37.3 C 03/08/19 10:38 Pulse 83 03/08/19 10:38 Respiratory Rate 16 03/08/19 10:38 Blood Pressure 125/79 03/08/19 10:38 Pulse Oximetry 100 03/08/19 10:38 Temperature 37.3 C 03/08/19 10:38 Temperature Source Temporal Artery Scan 03/08/19 10:38 Pulse 83 03/08/19 10:38 Respiratory Rate 16 03/08/19 10:38 Respiratory Effort Non-Labored 03/08/19 10:42 Blood Pressure 125/79 03/08/19 10:38 Blood Pressure Position Sitting 03/08/19 10:38 Pulse Oximetry 100 03/08/19 10:38 Oxygen Delivery Method Room Air 03/08/19 10:38 Oxygen Flow Rate 0 03/08/19 10:38 Pain Level 9 03/08/19 10:44
[2019-03-08] MEDS: Ondansetron 4 MG/2 ML VIAL IVP (11:08)
[2019-03-08] MEDS: Normal Saline 1,000 ML 1000 ML IV (11:08)
[2019-03-08] MEDS: Ketorolac 30 MG/ML VIAL IVP (11:08)
[2019-03-08 11:14] LABS: Abs Immature Grans 0.02 k/cumm (0.0-0.09); Absolute Basophil Count 0.06 k/cumm (0.0-0.2); Absolute Eosinophil Count 0.13 k/cumm (0.0-0.7); Absolute Lymphocyte Count 1.99 k/cumm (1.2-3.4); Absolute Neutrophil Count 9.35 k/cumm (1.2-6.7); Basophils % 0.5; HGB 13.5 g/dL (12.0-15.5); Immature Grans % 0.2; Lymphocytes % 15.7; Mean Corp. HGB Concentration 33.8 g/dL (32.0-36.0); Mean Corpuscular Hemoglobin 30.5 pg (27.0-33.0); Mean Corpuscular Volume 90.3 fL (80-95); Mean Platelet Volume 8.1 fL (8.0-11.0); Monocytes % 8.7; Neutrophils % 73.9; Platelet Count 524 x1000/uL (130-400); RBC 4.43 m/cumm (4.00-5.20); RBC Distribution Width 12.8 % (11.7-14.6); White Blood Cell Count 12.65 k/cumm (4.4-10.8)
[2019-03-08 11:15] LABS: Bilirubin Negative (Negative); Blood Negative (Negative); Clarity Clear (Clear); Glucose Negative (Negative); Ketones Negative (Negative); Leukocyte Esterase Negative (Negative); Nitrite Negative (Negative); Specific Gravity <= 1.005 (1.005-1.025); Urobilinogen 0.2 EU/dL (Up TO 0.2)
[2019-03-08 11:22] LABS: ALT 18 U/L (14-59); AST 12 U/L (15-37); Albumin 3.6 g/dL (3.4-5.0); Alkaline Phosphatase 90 U/L (46-116); Anion Gap 9.7 mmol/L (3-11); BUN 14 mg/dL (7-18); Bilirubin, Total 0.4 mg/dL (0.2-1.0); CO2 25.3 mmol/L (21.0-32.0); CREATININE 0.95 mg/dL (0.55-1.02); Calcium 8.5 mg/dL (8.5-10.1); Chloride 104 mmol/L (98-107); Glucose 83 mg/dL (70-100); Potassium 3.8 mmol/L (3.5-5.1); Sodium 139 mmol/L (136-145); Total Protein 7.7 g/dL (6.4-8.2)
[2019-03-08] MEDS: Omnipaque 350 MG/ML 100 ML BTL IV (11:43)
[2019-03-08] MEDS: Normal Saline Flush 10 ML SYR IVP (11:45)
--- NOTE | 2019-03-08 11:48 | DI.CT_ITS ---
EXAM: CT ABDOMEN PELVIS W CLINICAL HISTORY: RLQ pain TECHNIQUE: CT examination of the abdomen and pelvis was performed with bolus infusion of 100 cc of O mnipaque 350. . FINDINGS: Examination is compared with the previous examination of July 27, 2018. Previously noted suspected r ight hydrosalpinx is less prominent on current examination. No current evidence of pelvic edema or fr ee fluid. Uterine pessary noted in place. Appendix is normal. Lungs are clear. Liver, spleen and pancreas appear normal. Gallbladder has been surgically removed. N o biliary dilatation is seen. Slight prominence of upper abdominal lymph nodes, both mesenteric and retroperitoneal noted, no node appears to be larger than 10 millimeters in diameter. Adrenals and kidneys appear normal. No urinary tract calcification or obstruction. Abdominal aorta is normal in diameter and no major vascular abnor mality seen. There are multiple loops of small bowel in the left upper quadrant consistent with jejunum with thick ened wall. Duodenal wall appears mildly thickened as well. The possibility of enteritis is raised, co nsider giardiasis in the setting of chronic enteritis IMPRESSION: Abnormal appearance of left upper quadrant small bowel, presumably mostly duodenum and jejunum. No ot her specific findings. No evidence of appendicitis
[2019-03-10 14:53] LABS: Chlamydia Result Negative (Negative); GC Result Negative (Negative); Specimen Description CERVIX
== END 2019-03-08 14:43 | disposition home or self-care (01) ==
PROVIDERS: Emergency Provider Nurse Practitioner Family; PCP Nurse Practitioner
DX: R10.31 Right lower quadrant pain; R11.0 Nausea; N70.11 Chronic salpingitis
CPT/HCPCS: 80053; 81025; 87491; 87591; 96361; 96374; 96375; 99285; 74177; 81003; 85025; 87480; 87510; 87660; 99284; J1885; J2405; J3490

== ENCOUNTER 2019-03-31 07:51 | Outpatient (CLI) | payer MEDICAID, SELFPAY ==
[2019-03-31 08:39] LABS: HCT 38.7 % (36.0-46.0); HGB 12.8 g/dL (12.0-15.5); Mean Corp. HGB Concentration 33.1 g/dL (32.0-36.0); Mean Corpuscular Hemoglobin 30.2 pg (27.0-33.0); Mean Corpuscular Volume 91.3 fL (80-95); Mean Platelet Volume 7.8 fL (8.0-11.0); Platelet Count 440 x1000/uL (130-400); RBC 4.24 m/cumm (4.00-5.20); RBC Distribution Width 12.9 % (11.7-14.6); White Blood Cell Count 7.29 k/cumm (4.4-10.8)
[2019-03-31 09:34] LABS: BUN 12 mg/dL (7-18); CREATININE 0.96 mg/dL (0.55-1.02); Calcium 8.7 mg/dL (8.5-10.1); Chloride 108 mmol/L (98-107); Glucose 78 mg/dL (70-100); Potassium 4.2 mmol/L (3.5-5.1); Sodium 141 mmol/L (136-145)
== END 2019-03-31 08:11 ==
PROVIDERS: PCP Nurse Practitioner; Visit Provider Obstetrics & Gynecology Gynecology
DX: Z01.812 Encounter for preprocedural laboratory examination (principal); N70.11 Chronic salpingitis
CPT/HCPCS: 36415; 80048; 85027; 86850; 86900; 86901

== ENCOUNTER 2019-04-01 06:46 | Day surgery (SDC) | payer MEDICAID, SELFPAY ==
[2019-04-01] VITALS (12 sets, daily range): BP systolic 78–111; BP diastolic 36–66; PULSE 55–78; RESP 13–22; TEMP 36.3–36.5; O2SAT 95–100
[2019-04-01] MEDS: Lactated Ringers 1,000 ML 125 ML IV ×2 (07:38→10:58)
[2019-04-01] MEDS: Bupivacaine 0.25% Pres-Free 30 ML VIAL (09:18)
--- NOTE | 2019-04-01 09:54 | FALL_PTH ---
PATIENT: Nelia Son LOC: [facility] U#:[id number] AGE/SX: 28/F ROOM: RE04/01/[address]: Jany Pham : 1990 BED: DIS: 04/01/2019 SPEC #: [id number] RECD: 04/01/19 12:33 STATUS: JEFRY REQ #: [id number] RIVERA: 04/01/19 09:[address]: Jany Pham DEPT: Surgical Specimen RECD BY: Mary Kelsey ENTERED: 04/01/19 12:34 SP TYPE: Fall OTHR DR: Svitlana Gilbert Tissues: 1 - FALLOPIAN TUBE (OTHER) Procedures: GROSS AND MICRO LEVEL 3 Comments: [id number]
--- NOTE | 2019-04-01 10:16 | W.PM.DSUDISC ---
Discharge Plan Disposition Patient Disposition: HOME Discharge Details Attending Provider: Jany Pham Primary Care Provider: Svitlana Gilbert Home Meds and New Rx's Prescriptions: No Action NuvaRing 0.12-0.015 mg/24 hr ring 1 vag ring VG 1 q 3 weeks Qty: 3 RF: 4 ibuprofen 600 mg tablet 600 mg PO Q6H PRN (Reason: pain) Qty: 20 RF: 0 Discharge Instructions Stand Alone Forms: [facility], Melinda Alegre ([facility]) Discharge Data Discharge Date/Time-TO BE ENTERED AT DEPARTURE: 04/01/19 12:50 Discharge Comment: Pt walked out with mother Iesha Choudhary DS: Diagnosis Discharge Diagnosis (1) Hydrosalpinx: Status: Acute (2) History of salpingectomy: Status: Acute (3) Fallopian tube disorder: Status: Acute
[2019-04-01] MEDS: fentaNYL 100 MCG/2 ML VIAL IVP (11:15)
[2019-04-01] MEDS: oxyCODONE 5 mg/Acetaminophen 325 mg TAB PO (11:56)
--- NOTE | 2019-04-01 20:34 | ROE_ITS ---
Date of service: 04/01/19 Time of Service: 20:34 Operative Note Operative Note DATE OF PROCEDURE: 04/01/19 PRE-OP DIAGNOSIS: Symptomatic right hydrosalpinx POST-OP DIAGNOSIS: same Possible occlusion of left fallopian tube. PROCEDURE: Laparoscopic right salpingectomy in chromopertubation of the left fallopian tube SURGEON: Jany Pham BALLISTICS TESTER: Alba Berkowitz ANESTHESIA: GETA ESTIMATED BLOOD LOSS: 5 PATHOLOGY: other (Right fallopian tube) COMPLICATIONS: None Patient was transported to: PACU Patient's condition: stable Indications: 28-year-old with persistent right lower quadrant pain after treatment for right tubo-ovarian abscess. The appearance of the right hydrosalpinx never changed but the patient remained symptomatic. Findings: The right fallopian tube was distended from the fimbria to the right uterine cornua. Left fallopian tube did not demonstrate extravasation of the indigocarmine that was delivered into the uterus. Procedure Description: Patient was taken the operating room which is placed in the dorsal supine position and general endotracheal anesthesia was administered without difficulty. She was then placed in the dorsolithotomy position in yellowfin stirrups prepped and draped in the usual sterile fashion. A bivalve speculum was placed into the vagina the anterior lip of the cervix was grasped with single-tooth tenaculum and a George uterine manipulator was inserted into the uterine cavity and attached to the tenaculum. Previously attached to the intake port of the George uterine manipulator was a sterile syringe with dilute methylene blue dye. This was attached to the sterile drapes for access later in the case. Attention was turned the patient's abdomen where the umbilical fold was infiltrated with quarter percent Marcaine in a vertical skin incision was made with scalpel. Through this incision a Veirs needle was introduced attached to carbon dioxide pressure. The skin was tented up and intra-abdominal placement confirmed by drop in the intra-abdominal pressure. Pneumoperitoneum was achieved the varies needle was removed and a Visiport was placed through the umbilical incision and under direct visualization the abdominal cavity was entered. The lap scopic camera was removed the umbilical port attached to carbon dioxide gas for insufflation and the patient was then placed in Trendelenburg. To 5 mm skin incisions were made approximately 3 cm medial to the anterior iliac crest sites infiltrated with quarter percent Marcaine and and under direct visualization 5 mm trochars were placed in the right and left lower quadrants respectively. The abdomen was carefully inspected as well as the pelvis with the above-noted findings. The right fallopian tube was grasped and its connection to the right uterine cornua was clamped cauterized and transected. The mesosalpinx was then sequentially clamped cauterized and transected to the level of the Clomid swollen distal portion of the fallopian tube. Once the fallopian tube was freed from its attachments an Endo Catch bag was inserted into the abdominal cavity and the right fallopian tube was placed into the Endo Catch bag and delivered through the 10 mm trocar. The pedicle of the right fallopian tube was inspected and noted be hemostatic. 30 cc of methylene blue were instilled into the uterine cavity with no evidence of spillage from the left fallopian tube there was an evidence of distention with the dye but no extravasation from the fallopian tubes. The procedure was concluded both 5 mm lower trochars were removed under direct visualization the pneumoperitoneum reduced and the umbilical port removed. Rectus fascia was grasped and reapproximated with interrupted suture of 0 Vicryl. The skin of all incisions was reapproximated with a subcuticular closure of 4-0 Monocryl and all incision sites sealed with skin glue. All sponge lap needle counts correct x2. Patient was awakened extubated and transferred recovery in stable condition.
== END 2019-04-01 12:50 | disposition home or self-care (01) ==
LOC: SUR 06:46
PROVIDERS: PCP Nurse Practitioner; Visit Provider Obstetrics & Gynecology Gynecology
PROC: (CPT 58661; principal; 2019-04-01 08:45)
DX: N70.11 Chronic salpingitis (principal); R10.31 Right lower quadrant pain; N83.8 Other noninflammatory disorders of ovary, fallopian tube and broad ligament
CPT/HCPCS: 58661; 58350; 81025; 88304; J1100; J1885; J2405; J3010

== ENCOUNTER 2019-08-24 10:39 | Outpatient (REF) | payer MEDICAID, SELFPAY ==
[2019-08-24 19:49] LABS: HCT 41.8 % (36.0-46.0); HGB 13.8 g/dL (12.0-15.5); Mean Corpuscular Hemoglobin 30.4 pg (27.0-33.0); Mean Corpuscular Volume 92.1 fL (80-95); Mean Platelet Volume 8.5 fL (8.0-11.0); Platelet Count 474 x1000/uL (130-400); RBC 4.54 m/cumm (4.00-5.20); RBC Distribution Width 12.9 % (11.7-14.6); White Blood Cell Count 11.69 k/cumm (4.4-10.8)
[2019-08-24 20:23] LABS: ALT 22 U/L (14-59); AST 14 U/L (15-37); Albumin 3.6 g/dL (3.4-5.0); Alkaline Phosphatase 87 U/L (46-116); Anion Gap 9.2 mmol/L (3-11); BUN 14 mg/dL (7-18); Bilirubin, Total 0.4 mg/dL (0.2-1.0); CO2 26.8 mmol/L (21.0-32.0); CREATININE 0.94 mg/dL (0.55-1.02); Chloride 106 mmol/L (98-107); Glucose 62 mg/dL (74-106); Potassium 4.6 mmol/L (3.5-5.1); Sodium 142 mmol/L (136-145); TSH (W/Ref FT4) 1.43 uIU/mL (0.36-3.74); Total Protein 7.1 g/dL (6.4-8.2)
[2019-08-24 20:37] LABS: Vitamin D 25 Total 18.9 ng/ml (30-100)
== END 2019-08-24 10:59 ==
LOC: NCHCN 10:39
PROVIDERS: PCP Nurse Practitioner; Visit Provider Nurse Practitioner
DX: R53.83 Other fatigue (principal)
CPT/HCPCS: 80053; 82306; 85027; 84443

== ENCOUNTER 2019-10-21 17:58 | Outpatient (REF) | payer MEDICAID, SELFPAY ==
[2019-10-21 17:12] LABS: Abs Immature Grans 0.05 k/cumm (0.0-0.09); Absolute Eosinophil Count 0.23 k/cumm (0.0-0.7); Absolute Monocyte Count 1.07 k/cumm (0.11-0.7); Basophils % 0.3; HCT 40.9 % (36.0-46.0); HGB 13.6 g/dL (12.0-15.5); Immature Grans % 0.4 %; Lymphocytes % 23.6; Mean Corp. HGB Concentration 33.3 g/dL (32.0-36.0); Mean Corpuscular Hemoglobin 30.5 pg (27.0-33.0); Mean Corpuscular Volume 91.7 fL (80-95); Mean Platelet Volume 8.1 fL (8.0-11.0); Monocytes % 9.3; Neutrophils % 64.4; Platelet Count 483 x1000/uL (130-400); RBC 4.46 m/cumm (4.00-5.20); RBC Distribution Width 12.9 % (11.7-14.6); White Blood Cell Count 11.46 k/cumm (4.4-10.8)
[2019-10-21 17:14] LABS: Absolute Basophil Count 0.03 k/cumm (0.0-0.2); Absolute Neutrophil Count 7.38 k/cumm (1.2-6.7)
[2019-10-21 17:26] LABS: HCG Quant, Pregnancy < 1 mIU/mL (1-3)
== END 2019-10-21 18:18 ==
LOC: LBN 17:58
PROVIDERS: PCP Nurse Practitioner; Visit Provider Obstetrics & Gynecology
DX: N83.9 Noninflammatory disorder of ovary, fallopian tube and broad ligament, unspecified (principal); N93.8 Other specified abnormal uterine and vaginal bleeding; R10.2 Pelvic and perineal pain
CPT/HCPCS: 84702; 85025

== ENCOUNTER 2019-10-26 02:10 | Outpatient (CLI) | payer MEDICAID, SELFPAY ==
--- NOTE | 2019-10-26 12:30 | DI.US_ITS ---
EXAM: US PELVIS TRANSVAGINAL CLINICAL HISTORY: R10.2 pelvic pain N93.8 AUB, N83.9. TECHNIQUE: Transabdominal and transvaginal pelvic ultrasound was performed using standard protocol. COMPARISON: US US PELVIS TRANSVAGINAL from 01/15/2019 US US pelvis from 01/27/2019 FINDINGS: KIDNEYS: Kidneys are symmetric in size. No evidence of renal calculi. No evidence of hydronephrosis. No renal mass or cyst identified. UTERUS: Position: Retroverted Size: 7.9 long by 5.5 AP x 6.2 transverse cm Endometrium: 0.4 cm. Normal for patient's menstrual status. Small amount of fluid seen within the end ometrial canal. Myometrium: Unremarkable. Cervix: Unremarkable. OVARIES: Right: 2.6 x 1.0 x 0.9 cm Cyst or mass: None. Left: 2.7 x 1.3 x 1.0 cm Cyst or mass: None. DOPPLER: Color: Symmetric and uniform flow to both ovaries. No hyperemia. Mildly prominent vessel seen in the left adnexa which is unchanged. Duplex: Normal ovarian arterial waveforms visualized. CUL-DE-SAC: Free fluid: None. Other: Patient is status post right salpingectomy IMPRESSION: 1. Normal sonographic appearance of the kidneys. 2. Normal-appearing uterus with endometrial stripe within normal limits. 3. Unremarkable bilateral ovaries. 4. Status post right salpingectomy DATA REPOSITORY:
== END 2019-10-26 02:30 ==
PROVIDERS: PCP Nurse Practitioner; Visit Provider Obstetrics & Gynecology
DX: R10.2 Pelvic and perineal pain (principal); N93.8 Other specified abnormal uterine and vaginal bleeding; N83.9 Noninflammatory disorder of ovary, fallopian tube and broad ligament, unspecified; Z90.721 Acquired absence of ovaries, unilateral
CPT/HCPCS: 76830; 76856

== ENCOUNTER 2019-11-07 01:20 | Emergency (ER) | payer MEDICAID, SELFPAY ==
[2019-11-07 01:25] VITALS: BP 144/93; PULSE 125; RESP 20; TEMP 36.7; O2SAT 98
[2019-11-07] MEDS: Fluorescein STRIPS 100/BOX 1 MG (01:35)
[2019-11-07] MEDS: Tetracaine 0.5% 4 ML BTL (01:35)
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
[2019-11-07] MEDS: Erythromycin Ophth Oint 3.5 GM TUBE (01:51)
--- NOTE | 2019-11-07 01:58 | NUR.NOTE ---
Nursing Note: referal and note faxed to [facility] 11/07/19
[2019-11-07 02:04] VITALS: BP 132/90; PULSE 99; RESP 20; TEMP 36.7; O2SAT 98
== END 2019-11-07 01:55 | disposition home or self-care (01) ==
LOC: ER 02:01
PROVIDERS: Emergency Provider Student in an Organized Health Care Education/Training Program; PCP Nurse Practitioner
DX: S05.01XA Injury of conjunctiva and corneal abrasion without foreign body, right eye, initial encounter (principal); W20.8XXA Other cause of strike by thrown, projected or falling object, initial encounter
CPT/HCPCS: 99283

== ENCOUNTER 2020-02-02 16:12 | Outpatient (REF) | payer MEDICAID, SELFPAY ==
[2020-02-05 14:04] LABS: Patient Race White; SARS-CoV-2 RNA Undetected (Undetected); SARS-CoV-2 Specimen Source Nasopharynx
== END 2020-02-02 16:32 ==
LOC: NCHCN 16:12
PROVIDERS: PCP Nurse Practitioner; Visit Provider Physician Assistant
DX: J02.9 Acute pharyngitis, unspecified (principal)
CPT/HCPCS: U0003

== ENCOUNTER 2021-02-26 17:57 | Emergency (ER) | payer MEDICAID, SELFPAY ==
[2021-02-26 18:36] VITALS: BP 119/72; PULSE 76; RESP 16; TEMP 37.4; O2SAT 99
--- NOTE | 2021-02-26 19:00 | DI.RAD_ITS ---
Exam(s) XR WRIST LT COMPLETE EXAM: XR WRIST LT COMPLETE CLINICAL HISTORY: fall on wrist TECHNIQUE: COMPARISON: No exams were available for comparison FINDINGS: Three views were obtained. There is a mildly displaced fracture of distal radius, there appears to b e mild comminution, the fracture plane may extend through the distal articular surface. There is an associated nondisplaced ulnar styloid fracture. Otherwise the carpus appears intact. IMPRESSION: RADIATION DOSE DELIVERED: Total DLP
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
--- NOTE | 2021-02-26 21:36 | DI.VRAD_ITS ---
PROCEDURE INFORMATION: Exam: XR Left Wrist Exam date and time: 02/26/2021 7:10 PM Age: 30 years old Clinical indication: Other: Fall on wrist TECHNIQUE: Imaging protocol: XR Left wrist. Views: 3 or more views. COMPARISON: No relevant prior studies available. FINDINGS: Bones/joints: Impacted transverse fracture through the distal metaphysis of the radius. There is no definitive evidence of intra-articular extension of the fracture line. Soft tissues: Normal. IMPRESSION: Impacted transverse fracture through the distal metaphysis of the radius. There is no definitive evidence of intra-articular extension of the fracture line. Dictated and Authenticated by: Jas Pemberton MD. Ordering:GUIDO Montes MD
== END 2021-02-26 20:59 | disposition home or self-care (01) ==
PROVIDERS: Emergency Provider Physician Assistant; PCP Nurse Practitioner
DX: S52.322A Displaced transverse fracture of shaft of left radius, initial encounter for closed fracture (principal); S52.612A Displaced fracture of left ulna styloid process, initial encounter for closed fracture; W19.XXXA Unspecified fall, initial encounter
CPT/HCPCS: 25600; 73110

== ENCOUNTER 2021-03-08 13:30 | Outpatient (CLI) | payer MEDICAID, SELFPAY ==
--- NOTE | 2021-03-08 13:00 | DI.RAD_ITS ---
Exam(s) XR WRIST LT COMPLETE EXAM: XR WRIST LT COMPLETE CLINICAL HISTORY: distal radius and ulna fx f/u. TECHNIQUE: 2D digital imaging was performed of the left wrist. Three images were obtained. Scaphoi d, PA, oblique and lateral views were obtained. COMPARISON: CR,XR XR WRIST LT COMPLETE from 02/26/2021 FINDINGS: BONES: There has been no change in alignment of the mildly impacted distal radial fracture or the non displaced ulnar styloid process fracture since the prior examination. No new fracture is seen. No b katy destructive lesion is seen. JOINTS: The carpal bones are normally aligned. SOFT TISSUE: Normal. IMPRESSION: Stable distal radial and ulnar fractures. DATA REPOSITORY: RADIATION DOSE DELIVERED:
== END 2021-03-08 13:31 | disposition home or self-care (01) ==
LOC: DIORS 13:31
PROVIDERS: PCP Nurse Practitioner; Referring Provider Nurse Practitioner; Visit Provider Physician Assistant
DX: S52.322D Displaced transverse fracture of shaft of left radius, subsequent encounter for closed fracture with routine healing (principal); S52.612D Displaced fracture of left ulna styloid process, subsequent encounter for closed fracture with routine healing
CPT/HCPCS: 73110

== ENCOUNTER 2021-04-02 19:41 | Emergency (ER) | payer MEDICAID, SELFPAY ==
[2021-04-02] VITALS (19 sets, daily range): BP systolic 97–117; BP diastolic 58–99; PULSE 51–88; RESP 15–25; TEMP 36.6; O2SAT 98–100
--- NOTE | 2021-04-02 19:45 | RT.EKG_ITS ---
APPROVED REPORT Exam: Resting ECG Reason for Exam: chest pain Patient Location: E HR:80 bpm ECG Measurements Heart Rate 80 AXIS WI 153 P 70 QRSd 73 QRS 65 QT 363 T 37 QTc 421 Conclusion Sinus rhythm...normal P axis, V-rate 60- 99 [id number]: Rate 80, intervals normal, sinus rhythm, no significant ST elevation or depression. No s igns of right heart strain. No STEMI
--- NOTE | 2021-04-02 20:12 | ED.GENADUL_ITS ---
Discharge Plan Disposition Patient Disposition: HOME Condition: Good Discharge Details Clinical Impression: Chest pain Primary Care Provider: Svitlana Gilbert ED Provider: Tahir Mcmillan Home Meds and New Rx's Prescriptions: Continued etonogestrel-ethinyl estradiol [NuvaRing] 0.12-0.015 mg/24 hr ring 1 vag ring VG 1 q 3 weeks Qty: 3 RF: 4 ibuprofen 600 mg tablet 600 mg PO Q6H PRN (Reason: pain) Qty: 20 RF: 0 Discharge Instructions Instructions: Chest Pain (ED) Additional Instructions: At this time your EKG, laboratory work-up, chest x-ray are negative for concerning abnormality. No evidence of blood clots in your blood work, or cardiac abnormality in your work-up. I suspect that your symptoms are likely from a mild irritation in your lungs, or mild sprain in the muscles of your ribs. Please take Tylenol or Motrin as needed for pain. Apply ice or heat to the area to help alleviate the symptoms. If you notice any worsening of your symptoms, or any new symptoms such as vomiting, diarrhea, fever, chills, shortness of breath, chest pain, numbness, weakness, or fainting , please return immediately to the emergency department for reevaluation. Please follow up with your primary care provider as soon as possible for reassessment and reevaluation. As always, it was a pleasure participating in your medical care today. Referrals: Svitlana Gilbert [Primary Care Provider] - Medical Decision Making 30-year-old female with a past medical history of cholecystectomy, tubal ligation, GERD, who presents today for evaluation of right chest pain. Patient states that for the last 3 days she has had mild right upper/right mid chest pain. There is been a mild pleuritic component with deep breathing. She has noticed increased fatigue and shortness of breath with activity or exertion. She denies shortness of breath at rest though. She denies any recent long trips surgeries or procedures, she is wearing a cast on her left arm for her wrist fracture. She does have the nova ring in place. She denies any other complaints at this time. She denies any history of PE. No family history of cardiac disease. She quit smoking 5 weeks ago. She denies any hemoptysis, cough, or fever. No calf tenderness. No other complaints at this time. Rafael buck does note that the pain is burning in nature. It is only located in the right chest with no radiation to the arm neck or shoulder. She did take multiple Tums and this has not helped her over the last 3 days. Physical exam is notably unremarkable, no swelling of the lower extremities, no swelling of the upper extremities. No significant reproducible tenderness on palpation of the right mid/upper chest. No signs of significant trauma. Differential includes musculoskeletal chest pain, however with the patient's contraceptive use, recent cast on her left arm, and recent tobacco abuse, I am concerned for potential PE on this is low likelihood still. We will get a D- dimer to rule out. Symptoms appear inconsistent with ACS. EKG is unremarkable. We will gently rehydrate, give Toradol, monitor closely and reassess. 9:39 PM X-ray results is returned normal. D-dimer negative. Work-up shows no white count bandemia or other concerning abnormality. Electrolyte stable, renal func tion stable. Troponin normal. Lipase normal. Patient remained stable in appearance, no signs of toxic appearance whatsoever. Vital signs remained normal. His negative D-dimer her symptoms would be inconsistent at this time with significant PE. Symptoms are inconsistent with dissection or ACS currently on clinical assessment. Recommend ice or heat to the right chest area, Tylenol or Motrin as needed and to cut down on any greasy or fatty foods. Symptoms likely secondary to musculoskeletal etiology at this time in light of the work- up and clinical reassessment. Discussed red flags which to return. I have extensively reviewed the treatment plan and discharge instructions with the patient. I have addressed all patient concerns at this time. The patient was made aware of what symptoms to monitor for that would warrant a return to the emergency department. Discussed the plan with the patient, they demonstrate verbal understanding and agreement with our assessment and plan at this time. The documentation in this chart was dictated using netFactor dictation software. Please excuse any dictation errors. EKG 19: 48 Rate 80, intervals normal, sinus rhythm, no significant ST elevation or depression. No signs of right heart strain. No STEMI FINDINGS: Lungs: No mass. No consolidation. Pleural spaces: Unremarkable. No pleural effusion. No pneumothorax. Heart/Mediastinum: Unremarkable cardiomediastinal silhouette. No cardiomegaly. Bones/joints: Unremarkable. IMPRESSION: No evidence for acute cardiopulmonary disease. Thank you for allowing us to participate in the care of your patient. Dictated and Authenticated by: Gianni Aj MD 04/02/2021 9:33 PM Eastern Time ([place] & [place]) HPI General Date/Time Provider Initiated Documentation: 04/02/21 20:01 . HPI Narrative: 30-year-old female with a past medical history of cholecystectomy, tubal ligation, GERD, who presents today for evaluation of right chest pain. Patient states that for the last 3 days she has had mild right upper/right mid chest pain. There is been a mild pleuritic component with deep breathing. She has noticed increased fatigue and shortness of breath with activity or exertion. She denies shortness of breath at rest though. She denies any recent long trips surgeries or procedures, she is wearing a cast on her left arm for her wrist fracture. She does have the nova ring in place. She denies any other complaints at this time. She denies any history of PE. No family history of cardiac disease. She quit smoking 5 weeks ago. She denies any hemoptysis, cough, or fever. No calf tenderness. No other complaints at this time. Patient does note that the pain is burning in nature. It is only located in the right chest with no radiation to the arm neck or shoulder. She did take multiple Tums and this has not helped her over the last 3 days. Related Data Home Medications Medication Instructions Recorded Confirmed ibuprofen 600 mg PO Q6H PRN #20 tab 03/08/19 04/02/21 etonogestrel 0.12 mg-ethinyl 1 vag ring VG 1 q 3 weeks #3 03/30/20 04/02/21 estradiol 0.015 mg/24 hr vaginal vag.ring ring Previous Rx's Medication Instructions Recorded ibuprofen 600 mg PO Q6H PRN #20 tab 03/08/19 etonogestrel 0.12 mg-ethinyl 1 vag ring VG 1 q 3 weeks #3 03/30/20 estradiol 0.015 mg/24 hr vaginal vag.ring ring Allergies Allergy/AdvReac Type Severity Reaction Status Date / Time No Known Allergies Allergy Verified 04/02/21 19:52 General Stated Complaint: Chest Pain JIM: 2 Review of Systems All systems reviewed & are unremarkable except as noted in HPI and below PFSH Medical History Abnormal Pap smear of cervix 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 Repeat LEEP CIN2 with focally positive margins. Will repeat Pap in one year. DALLAS II (cervical intraepithelial neoplasia II) 11/2017 LEEP with margins + for CIN2. 01/2018 repeat LEEP: CIN2 extending to margins. Pt counseled repeat Pap in one year. DUB (dysfunctional uterine bleeding) Fallopian tube disorder e 04/01/19 L sided attempt at chromopertubation of fallopian tube at time of laparoscopic salpingectomy without spillage Hydrosalpinx R side. Inpt Abx 01/12-8-. PO Abx x2w. repeat u/s.... Right lower quadrant pain Tobacco use counseled to quit. Surgical History H/O LEEP 11/2017 CIN2. + Margins. 02/02/18 CIN2. History of section x2 History of cholecystectomy History of salpingectomy 04/01/19. R sided laparoscopic salpingectomy. Social History Smoking/Tobacco Use Status: Former Tobacco Use Quit Date: 03/16/19 Counseling given: provider counseling and counseling >3 minutes Smoking risk assessment performed?: Yes Alcohol Intake: current Alcohol Intake frequency: a few times a month Alcohol type: beer and wine Details: MONTHLY OR LESS Drug use: Never Substance use type: does not use Household members: children and other Details: HuaShayy Oz. Number of Children: 2 current occupation: [employer] Sexually active: Yes Current gender identity: female Do you feel safe at home: Yes Do you feel safe in your relationship?: Yes Female Reproductive History Menstrual control method: vaginal ring History History 2 Para 2 Hx # Term Pregnancies 2 Multiple births Hx # Pregnancies Ectopic pregnancies AB induced Hx Number of Living Children AB spontaneous Exam Narrative Exam Narrative: 1.Const: Well-nourished, Well-developed, appearing stated age 2.Eyes: PERRL, no conjunctival injection, and symmetrical lids. 3.ENT: Atraumatic external nose and ears. Moist MM. Neck: Symmetric, trachea midline, No thyromegaly. 4.CVS: +S1/S2, No murmurs or gallops. Peripheral pulses 2+ and equal in all extremities. Brisk capillary refill in all extremities. 5.RESP: Unlabored respiratory effort. Clear to auscultation bilaterally. No wheezes rales or rhonchi, no significant reproducible chest pain on palpation. 6.GI: Soft, Nontender/Nondistended, No hepatosplenomegaly. No guarding or rebound. Negative Morrison sign. 7.MSK: Normocephalic/Atraumatic, Extremities w/o deformity or ttp No cyanosis or clubbing, Normal movement of all extremities no calf tenderness. Cast is on the patient's left forearm. No unilateral swelling. 8.Skin: Warm, Dry. No rashes or lesions. 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 Sensation grossly intact, no focal neurologic deficits. 10.Psych: (AAO) x3. Appropriate mood and affect Course Vital Signs Vital signs: Vital Signs Temperature 36.6 C 04/02/21 19:45 Pulse 87 04/02/21 19:45 Respiratory Rate 24 04/02/21 19:45 Blood Pressure 114/69 04/02/21 19:45 Pulse Oximetry 100 04/02/21 19:45 Temperature 36.6 C 04/02/21 19:45 Temperature Source Temporal Artery Scan 04/02/21 19:45 Pulse 87 04/02/21 19:45 Respiratory Rate 24 04/02/21 19:53 Respiratory Effort Non-Labored 04/02/21 19:53 Respiratory Depth Normal 04/02/21 19:53 Respiratory Pattern Normal 04/02/21 19:53 Blood Pressure 114/69 04/02/21 19:45 Blood Pressure Position Sitting 04/02/21 19:45 Pulse Oximetry 100 04/02/21 19:45 Oxygen Delivery Method Room Air 04/02/21 19:45 Oxygen Flow Rate 0 04/02/21 19:45 Pain Level 6 04/02/21 19:45 PAWSS Have you Been Recently Intoxicated or Drunk Within the Last 30 days?: No Have you Ever Experienced Previous Episodes of Alcohol Withdrawal?: No Have you ever Experienced Withdrawal Seizures?: No Have you ever Experienced Delirium Tremens(DT)s?: No Have you ever undergone Alcohol Rehabilitation Treatment (i.e, inpt ot outpatien t treatment programs)?: No Have you ever Experienced Blackouts?: No Have you ever Combined Alcohol with other Downers within the last 90 days?: No Have you ever Combined Alcohol with any other Substance of Abuse during the last 90 days?: No Positive Blood Alcohol level on Presentation? [PCS.BAL]: No Evidence of Increased Autonomic Activity (i.e. HR>120, tremor, sweating, agitation, nausea)?: No Result: 0
[2021-04-02 20:22] LABS: Abs Immature Grans 0.02 10^3/uL (0.0-0.06); Absolute Basophil Count 0.09 10^3/uL (0.0-0.2); Absolute Eosinophil Count 0.21 10^3/uL (0.0-0.7); Absolute Lymphocyte Count 3.34 10^3/uL (1.2-3.4); Absolute Monocyte Count 0.84 10^3/uL (0.1-0.8); Absolute Neutrophil Count 4.29 10^3/uL (1.2-6.7); Eosinophils % 2.4; HCT 39.2 % (36.0-46.0); HGB 13.1 g/dL (11.2-15.7); Immature Grans % 0.2; MCH 30.4 pg (27.0-33.0); MCHC 33.4 % (32.0-36.0); MPV 7.8 fL (8.0-11.0); Monocytes % 9.6; Neutrophils % 48.8; Nucleated RBC 0 %; Platelet Count 361 10^3/uL (130-400); RBC 4.31 10^6/uL (3.93-5.22); RDW-SD 40.3 fL; WBC 8.79 10^3/uL (4.4-10.8)
[2021-04-02] MEDS: Ketorolac 15 MG/ML VIAL IVP (20:34)
[2021-04-02] MEDS: Normal Saline 500 ML IV (20:34)
[2021-04-02 20:39] LABS: Albumin 3.5 g/dL (3.4-5.0); Alkaline Phosphatase 75 U/L (46-116); BUN 15 mg/dL (7-18); Bilirubin, Total 0.3 mg/dL (0.2-1.0); CREATININE 1.2 mg/dL (0.55-1.02); Calcium 8.6 mg/dL (8.5-10.1); Estimated GFR 53.11 (mL/min/1.73m2); Glucose 102 mg/dL (74-106); Potassium 3.6 mmol/L (3.5-5.1); Sodium 143 mmol/L (136-145); Total Protein 7.3 g/dL (6.4-8.2)
[2021-04-02 20:40] LABS: ALT 18 U/L (14-59); AST 12 U/L (15-37); Anion Gap 7.5 mmol/L (3-11); CO2 28.5 mmol/L (21.0-32.0); Chloride 107 mmol/L (98-107); Lipase 88 U/L (73-393); Troponin I < 0.05 ng/mL (<0.06)
--- NOTE | 2021-04-02 20:45 | DI.RAD_ITS ---
Exam(s) XR CHEST 2V PA LATERAL EXAM: XR CHEST 2V PA LATERAL CLINICAL HISTORY: cough, sob. TECHNIQUE: 2D digital imaging was performed. COMPARISON: CR XR CHEST 2V PA LATERAL from 04/30/2018 FINDINGS: Heart size is normal. The mediastinum is not widened. Lungs are clear. No infiltrates nor pleural effusions. IMPRESSION: No acute pulmonary findings. DATA REPOSITORY: RADIATION DOSE DELIVERED:
[2021-04-02 20:50] LABS: D-Dimer 113 ng/mlFEU (<500)
--- NOTE | 2021-04-02 21:34 | DI.VRAD_ITS ---
PROCEDURE INFORMATION: Exam: XR Chest Exam date and time: 04/02/2021 8:55 PM Age: 30 years old Clinical indication: Other: Cough, SOB TECHNIQUE: Imaging protocol: XR of the chest. Views: 2 views. COMPARISON: CR XR CHEST 2V PA LATERAL 04/30/2018 5:20 PM FINDINGS: Lungs: No mass. No consolidation. Pleural spaces: Unremarkable. No pleural effusion. No pneumothorax. Heart/Mediastinum: Unremarkable cardiomediastinal silhouette. No cardiomegaly. Bones/joints: Unremarkable. IMPRESSION: No evidence for acute cardiopulmonary disease. Dictated and Authenticated by: Gianin Aj MD. Ordering:ALISSON Haro MD
== END 2021-04-02 21:43 | disposition home or self-care (01) ==
PROVIDERS: Emergency Provider Student in an Organized Health Care Education/Training Program; PCP Nurse Practitioner
DX: R07.9 Chest pain, unspecified (principal); R06.02 Shortness of breath; R53.1 Weakness
CPT/HCPCS: 80053; 83690; 93005; 96361; 96374; 99284; 71046; 84484; 85025; 85379; 93010; J1885

== ENCOUNTER 2021-04-05 14:55 | Outpatient (CLI) | payer MEDICAID, SELFPAY ==
--- NOTE | 2021-04-05 14:30 | DI.RAD_ITS ---
Exam(s) XR WRIST LT LIMITED EXAM: XR WRIST LT LIMITED CLINICAL HISTORY: fx f/u TECHNIQUE: COMPARISON: CR XR WRIST LT COMPLETE from 03/08/2021 FINDINGS: Two views were obtained. Previously described fracture of distal radius with associated ulnar styloi d fracture is again seen, no gross interval change in alignment of fracture fragments comparison with previous examination of March 08. IMPRESSION: RADIATION DOSE DELIVERED: Total DLP
== END 2021-04-05 14:56 | disposition home or self-care (01) ==
LOC: DIORS 14:56
PROVIDERS: PCP Internal Medicine; Referring Provider Internal Medicine; Visit Provider Student in an Organized Health Care Education/Training Program
DX: S52.322D Displaced transverse fracture of shaft of left radius, subsequent encounter for closed fracture with routine healing (principal); S52.612D Displaced fracture of left ulna styloid process, subsequent encounter for closed fracture with routine healing; W19.XXXD Unspecified fall, subsequent encounter
CPT/HCPCS: 73100

== ENCOUNTER 2021-04-19 16:26 | Outpatient (REF) | payer MEDICAID, SELFPAY ==
--- NOTE | 2021-04-19 15:15 | PAPFT_PTH ---
PATIENT: Nelia Son LOC: [facility] U#:[id number] AGE/SX: 30/F ROOM: RE04/19/[address]: Rowan Shah NP : 1990 BED: DIS: 04/19/2021 SPEC #: [id number] RECD: 04/19/21 18:14 STATUS: JEFRY REQ #: [id number] RIVERA: 04/19/21 15:[address]: Alyssa TAVAREZ,Rowan DEPT: [facility] Cytology RECD BY: Mary Kelsey ENTERED: 04/19/21 18:15 SP TYPE: PAPFT OTHR DR: Colton Schwarz Tissues: 1 - CX/ENDOCX FOR PAP SMEARS Procedures: PAP THIN PREP/UVM Screening Comments: [id number]
== END 2021-04-19 16:27 | disposition home or self-care (01) ==
LOC: LBN 16:26
PROVIDERS: PCP Internal Medicine; Visit Provider Nurse Practitioner Women's Health
DX: Z12.4 Encounter for screening for malignant neoplasm of cervix (principal); R87.612 Low grade squamous intraepithelial lesion on cytologic smear of cervix (LGSIL)
CPT/HCPCS: 88142

== ENCOUNTER 2021-06-06 10:04 | Outpatient (REF) | payer MEDICAID, SELFPAY ==
--- NOTE | 2021-06-05 09:50 | CER_PTH ---
PATIENT: Nelia Son LOC: [facility] U#:[id number] AGE/SX: 31/F ROOM: RE06/06/[address]: Mee Jiang MD : 1990 BED: DIS: 06/06/2021 SPEC #: [id number] RECD: 06/06/21 10:53 STATUS: JEFRY REQ #: [id number] RIVERA: 06/05/21 09:[address]: Mee Jiang DEPT: Surgical Specimen RECD BY: Mary Kelsey ENTERED: 06/06/21 10:54 SP TYPE: CER OTHR DR: Colton Schwarz Tissues: 1 - CERVICAL BIOPSY 2 - ENDOCERVICAL BX/CURRETTE Procedures: GROSS AND MICRO LEVEL 4 Comments: [id number]
== END 2021-06-06 10:05 | disposition home or self-care (01) ==
LOC: LBN 10:04
PROVIDERS: PCP Internal Medicine; Visit Provider Obstetrics & Gynecology
DX: N87.0 Mild cervical dysplasia (principal)
CPT/HCPCS: 88305

== ENCOUNTER 2022-01-30 14:14 | Outpatient (REF) | payer MEDICAID, SELFPAY ==
[2022-01-30 14:59] LABS: Abs Immature Grans 0.09 10^3/uL (0.0-0.06); Absolute Basophil Count 0.08 10^3/uL (0.0-0.2); Absolute Eosinophil Count 0.25 10^3/uL (0.0-0.7); Absolute Monocyte Count 1.48 10^3/uL (0.1-0.8); Basophils % 0.7; Eosinophils % 2.1; HCT 42.2 % (36.0-46.0); HGB 13.8 g/dL (11.2-15.7); Immature Grans % 0.7; Lymphocytes % 19.9; MCH 30.4 pg (27.0-33.0); MCHC 32.7 % (32.0-36.0); MCV 93 fL (80-95); MPV 8.1 fL (8.0-11.0); Monocytes % 12.3; Neutrophils % 64.3; Platelet Count 384 10^3/uL (130-400); RBC 4.54 10^6/uL (3.93-5.22); RDW 12.4 % (11.7-14.6); RDW-SD 42.7 fL; WBC 12.07 10^3/uL (4.4-10.8)
[2022-01-30 15:08] LABS: Absolute Neutrophil Count 7.76 10^3/uL (1.2-6.7)
[2022-01-30 15:24] LABS: Mono Screening Negative (Negative)
== END 2022-01-30 14:15 | disposition home or self-care (01) ==
LOC: NCHCN 14:14
PROVIDERS: PCP Internal Medicine; Visit Provider Nurse Practitioner Family
DX: R53.83 Other fatigue (principal)
CPT/HCPCS: 85025; 86308

== ENCOUNTER 2022-06-01 09:14 | Outpatient (REF) | payer MEDICAID, SELFPAY ==
--- NOTE | 2022-06-01 08:20 | PAPFT_PTH ---
PATIENT: Nelia Son LOC: [facility] U#:[id number] AGE/SX: 32/F ROOM: RE06/01/[address]: aJny Pham : 1990 BED: DIS: 06/01/2022 SPEC #: [id number] RECD: 06/01/22 12:45 STATUS: JEFRY REQ #: [id number] RIVERA: 06/01/22 08:[address]: Jany Pham DEPT: [facility] Cytology RECD BY: Mary Kelsey ENTERED: 06/01/22 12:45 SP TYPE: PAPFT OTHR DR: Colton Schwarz Tissues: 1 - CX/ENDOCX FOR PAP SMEARS Procedures: PAP THIN PREP/UVM Screening HPV DNA PROBE Comments: [id number]
== END 2022-06-01 09:15 | disposition home or self-care (01) ==
LOC: LBN 09:14
PROVIDERS: PCP Internal Medicine; Visit Provider Obstetrics & Gynecology Gynecology
DX: Z12.4 Encounter for screening for malignant neoplasm of cervix (principal); Z11.51 Encounter for screening for human papillomavirus (HPV); R87.612 Low grade squamous intraepithelial lesion on cytologic smear of cervix (LGSIL); R87.810 Cervical high risk human papillomavirus (HPV) DNA test positive
CPT/HCPCS: 88142; 87624

== ENCOUNTER 2022-07-25 18:35 | Outpatient (REF) | payer MEDICAID, SELFPAY ==
[2022-07-27 14:18] LABS: GC Result Negative (Negative)
[2022-07-30 08:45] LABS: Chlamydia Result Positive (Negative)
== END 2022-07-25 18:36 | disposition home or self-care (01) ==
LOC: LBN 18:35
PROVIDERS: PCP Internal Medicine; Visit Provider Obstetrics & Gynecology Gynecology
DX: R10.2 Pelvic and perineal pain (principal)
CPT/HCPCS: 87491; 87591

== ENCOUNTER 2022-07-27 00:34 | Outpatient (CLI) | payer MEDICAID, SELFPAY ==
--- NOTE | 2022-07-27 07:30 | DI.US_ITS ---
Exam(s) US PELVIS TRANSVAGINAL EXAM: US PELVIS TRANSVAGINAL CLINICAL HISTORY: L sided pelvic pain,FALLOPIAN TUBE DISORDER,R10.2,N83.9. TECHNIQUE: Transabdominal and transvaginal pelvic ultrasound was performed using standard protocol. COMPARISON: US US PELVIS TRANSVAGINAL from 10/26/2019 FINDINGS: UTERUS: Position: Retroverted Size: 7.1 long by 3.6 AP by 5.0 transverse cm Endometrium: 0.4 cm. Normal for patient's menstrual status. Myometrium: Unremarkable. Cervix: Unremarkable. OVARIES: Right: 4.5 x 1.4 x 2.3 cm Cyst or mass: No suspicious cystic or solid masses. Left: 3.9 x 2.4 x 3.7 cm Cyst or mass: No suspicious cystic or solid masses. DOPPLER: Color: Symmetric and uniform flow to both ovaries. CUL-DE-SAC: Free fluid: There is a small amount of free fluid in the right adnexa. Other: There are prominent vessels in the left adnexa. IMPRESSION: 1. Normal-appearing uterus with endometrial stripe within normal limits. 2. Unremarkable bilateral ovaries. 3. Prominent left parametrial vessels which may represent pelvic congestion syndrome. DATA REPOSITORY:
== END 2022-07-27 00:54 ==
LOC: DI 00:34
PROVIDERS: PCP Internal Medicine; Visit Provider Obstetrics & Gynecology Gynecology
DX: N83.9 Noninflammatory disorder of ovary, fallopian tube and broad ligament, unspecified (principal); R10.2 Pelvic and perineal pain
CPT/HCPCS: 76830; 76856

== ENCOUNTER 2022-08-24 08:35 | Outpatient (REF) | payer MEDICAID, SELFPAY ==
--- NOTE | 2022-08-24 08:30 | ENDO_PTH ---
PATIENT: Nelia Son LOC: [facility] U#:[id number] AGE/SX: 32/F ROOM: RE08/24/[address]: Jany Pham : 1990 BED: DIS: 08/24/2022 SPEC #: [id number] RECD: 08/24/22 12:39 STATUS: JEFRY REQing #: [id number] RIVERA: 08/24/22 08:[address]: Jany Pham DEPT: Surgical Specimen RECD BY: Mary Kelsey ENTERED: 08/24/22 12:40 SP TYPE: Endo OTHR DR: Colton Schwarz Tissues: 1 - ENDOCERVICAL BX/CURRETTE 2 - CERVICAL BIOPSY Procedures: GROSS AND MICRO LEVEL 4 Comments: [id number]
[2022-08-25 14:36] LABS: Chlamydia Result Negative (Negative); GC Result Negative (Negative)
== END 2022-08-24 08:36 | disposition home or self-care (01) ==
LOC: LBN 08:35
PROVIDERS: PCP Internal Medicine; Visit Provider Obstetrics & Gynecology Gynecology
DX: D26.0 Other benign neoplasm of cervix uteri (principal)
CPT/HCPCS: 87491; 87591; 88305

== ENCOUNTER 2023-01-26 15:17 | Emergency (ER) | payer MEDICAID, SELFPAY ==
[2023-01-26 15:19] VITALS: BP 109/74; PULSE 102; RESP 18; TEMP 37.1; O2SAT 100
--- NOTE | 2023-01-26 15:31 | ED.GENADUL_ITS ---
Discharge Plan Disposition Patient Disposition: Home Condition: Stable Discharge Details Clinical Impression: Cellulitis of right little finger Primary Care Provider: Colton Schwarz ED Provider: Bryce Shah Home Meds and New Rx's Prescriptions: New amoxicillin-pot clavulanate 875-125 mg tablet 1 tab PO BID Qty: 14 0RF Continued cholecalciferol (vitamin D3) 25 mcg (1,000 unit) capsule 25 mcg PO DAILY Nexplanon 68 mg implant 1 implant subdermal ONCE Qty: 1 0RF Rx Instructions: as a single dose ibuprofen 600 mg tablet 600 mg PO Q6H PRN (Reason: pain) Qty: 60 1RF Discontinued penicillin V potassium 500 mg tablet 500 mg PO BID Qty: 20 0RF Patient Comments: no longer taking Discharge Instructions Instructions: Cellulitis (ED) Additional Instructions: if not better within a week follow up with your primary care provider if you feel more ill, have fevers or severe worsening pain return to the emergency department Medical Decision Making 32 yo female comes in with redness and warmth to the distal right little finger for a week. Denies trauma, fevers, severe pain. Has erythema that is warm to the distal right pinky distal to the dip joint. Has full rom, intact sensation, no crepitus or severe pain. No fluctuance or evidence of drainable fluid collectio n. Suspect cellulitis vs paronychia, will start on augmentin and d/c, advised to f/u with pcp and return precautions given Differential Diagnosis Differential Diagnosis: paronhycia, cellulitis HPI General Mode of arrival: ambulatory . Date/Time Provider Initiated Documentation: 01/26/23 15:18 . Limitations to Documentation: no limitations . Information obtained by: patient . History of Present Illness 32 year old F presents to the emergency department with the chief complaint of right little finger redness, described as moderate, Quality is described as aching, Patient started experiencing this day(s) (6) and it has been constant. No relieving factors improve symptom(s), No exacerbating factors reported . Patient notes no other symptoms.. Patient did receive the following treatments prior to arrival, none Related Data Home Medications Medication Instructions Recorded Confirmed cholecalciferol (vitamin D3) 25 25 mcg PO DAILY 04/19/21 01/26/23 mcg (1,000 unit) capsule etonogestrel 68 mg subdermal 1 implant subdermal ONCE #1 ea 05/01/21 01/26/23 implant (Nexplanon) ibuprofen 600 mg tablet 600 mg PO Q6H PRN pain #60 tabs 07/25/22 01/26/23 amoxicillin 875 mg-potassium 1 tab PO BID #14 tabs 01/26/23 clavulanate 125 mg tablet Previous Rx's Medication Instructions Recorded etonogestrel 68 mg subdermal 1 implant subdermal ONCE #1 ea 05/01/21 implant (Nexplanon) ibuprofen 600 mg tablet 600 mg PO Q6H PRN pain #60 tabs 07/25/22 amoxicillin 875 mg-potassium 1 tab PO BID #14 tabs 01/26/23 clavulanate 125 mg tablet Allergies Allergy/AdvReac Type Severity Reaction Status Date / Time No Known Allergies Allergy Verified 01/26/23 15:21 General Stated Complaint: Cellulitis JIM: 4 Review of Systems All systems reviewed & are unremarkable except as noted in HPI and below Constitutional Constitutional: Denies chills, Denies fever(s) and Denies weakness Cardiovascular Cardiovascular: Denies chest pain and Denies dyspnea Respiratory Respiratory: Denies cough and Denies dyspnea Gastrointestinal Gastrointestinal: Denies abdominal pain, Denies nausea and Denies vomiting Integumentary/Breasts Skin/Breast: Denies rash Neurologic Neurologic: Denies weakness PFSH All Active Problems (Updated 01/26/23 @ 15:35 by Bryce Shah MD) Cellulitis of right little finger (Acute) Routine screening for STI (sexually transmitted infection) (Acute) Pelvic pain (Acute) Tension headache (Chronic) GERD (gastroesophageal reflux disease) (Chronic) Exercise-induced asthma (Chronic) Abnormal Pap smear of cervix (Acute) 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 Repeat LEEP CIN2 with focally positive margins. 2019: LSIL, pt did not have f/u colpo 2020: LSIL-H, Colpo neg. 2022. ASCUS + HPV. Neg colpo bx. Medical History DALLAS II (cervical intraepithelial neoplasia II) 11/2017 LEEP with margins + for CIN2. 01/2018 repeat LEEP: CIN2 extending to margins. Pt counseled repeat Pap in one year. Closed fracture distal radius and ulna (02/25/21) Fallopian tube disorder e 04/01/19 L sided attempt at chromopertubation of fallopian tube at time of laparoscopic salpingectomy without spillage Hydrosalpinx R side. Inpt Abx 01/12-8-. PO Abx x2w. repeat u/s.... Tobacco use Quit fall 2020 Surgical History H/O LEEP 11/2017 CIN2. + Margins. 02/02/18 CIN2. History of section x2 History of cholecystectomy History of salpingectomy 04/01/19. R sided laparoscopic salpingectomy. Social History Smoking/Tobacco Use Status: Former Tobacco Use Quit Date: 03/16/19 Counseling given: provider counseling and counseling >3 minutes Smoking risk assessment performed?: Yes Alcohol Intake: current Alcohol Intake frequency: holidays/special occasions only Alcohol type: beer Drug use: Never Substance use type: does not use Household members: children and other Details: Cameron. Clinton. BF Isaac (he has cystic fibrosis) Housing: house Number of Children: 2 current occupation: [employer] Sexually active: Yes Current gender identity: female Do you feel safe at home: Yes Do you feel safe in your relationship?: Yes Female Reproductive History Menstrual control method: implanted History History 2 Para 2 Hx # Term Pregnancies 2 Multiple births Hx # Pregnancies Ectopic pregnancies AB induced Hx Number of Living Children AB spontaneous Past Pregnancies Del. Date GA/Weeks # Preg Succ Route Wgt Sex Labor Lgth Anesth esia Location [facility] 10/28/10 42 Yes 3373.593 g Male nv rh 07/26/14 39 3486.991 g Male nv rh Exam Const General: no acute distress Orientation: alert HENMT Head: normal to inspection Ears: external ears normal General nose exam: external nose normal Mouth: moist mucous membranes Eyes General: appearance normal, both eyes and all related structures Neck Neck: normal visual inspection Resp Effort & Inspection: normal respiratory effort and able to speak in complete sentences Cardio Rate: regular rate Skin General skin exam: elasticity normal Neuro General: patient alert and patient oriented x3 Extrem General: full ROM and capillary refill normal Psych Mental Status: mental status grossly normal Course Vital Signs Vital signs: Vital Signs Temperature 37.1 C 01/26/23 15:19 Pulse 102 H 01/26/23 15:19 Respiratory Rate 18 01/26/23 15:19 Blood Pressure 109/74 01/26/23 15:19 Pulse Oximetry 100 01/26/23 15:19 Temperature 37.1 C 01/26/23 15:19 Temperature Source Skin 01/26/23 15:19 Pulse 102 H 01/26/23 15:19 Respiratory Rate 18 01/26/23 15:19 Respiratory Effort Normal, Non-Labored 01/26/23 15:21 Blood Pressure 109/74 01/26/23 15:19 Blood Pressure Position Sitting 01/26/23 15:19 Pulse Oximetry 100 01/26/23 15:19 Pain Level 8 01/26/23 15:19 PAWSS Have you Been Recently Intoxicated or Drunk Within the Last 30 days?: No Have you Ever Experienced Previous Episodes of Alcohol Withdrawal?: No Have you ever Experienced Withdrawal Seizures?: No Have you ever Experienced Delirium Tremens(DT)s?: No Have you ever undergone Alcohol Rehabilitation Treatment (i.e, inpt ot outpatient treatment programs)?: No Have you ever Experienced Blackouts?: No Have you ever Combined Alcohol with other Downers within the last 90 days?: No Have you ever Combined Alcohol with any other Substance of Abuse during the last 90 days?: No Positive Blood Alcohol level on Presentation? [PCS.BAL]: No Evidence of Increased Autonomic Activity (i.e. HR>120, tremor, sweating, agitation, nausea)?: No Result: 0
[2023-01-26 15:36] VITALS: BP 109/74; PULSE 102; RESP 18; TEMP 37.1; O2SAT 100
[2023-01-26] MEDS: Amoxicillin 875/Clav. 125 TAB PO (15:36)
== END 2023-01-26 17:14 | disposition home or self-care (01) ==
LOC: ER 17:14
PROVIDERS: Emergency Provider Emergency Medicine; PCP Internal Medicine
DX: L03.011 Cellulitis of right finger (principal)
CPT/HCPCS: 99283; 99284

== ENCOUNTER 2024-12-22 13:43 | Outpatient (REF) | payer BC, SELFPAY ==
--- NOTE | 2024-12-22 13:00 | PAPFT_PTH ---
PATIENT: Nelia Son LOC: [facility] U#:[id number] AGE/SX: 34/F ROOM: RE12/22/[address]: Madai Cunningham DO : 1990 BED: DIS: 12/22/2024 SPEC #: [id number] RECD: 12/22/24 18:28 STATUS: JEFRY REQ #: [id number] RIVERA: 12/22/24 13:[address]: Madai Cunningham DEPT: [facility] Cytology RECD BY: Mary Kelsey ENTERED: 12/22/24 18:28 SP TYPE: PAPFT OTHR DR: YADIRA MURPHY NP Tissues: 1 - CX/ENDOCX FOR PAP SMEARS Procedures: PAP THIN PREP/[facility] Screening HPV DNA PROBE Comments: [id number] (HPV 16 & 18/45) (CHLAMYDIA/GC)
[2024-12-23 11:45] LABS: Chlamydia Result Negative (Negative); GC Result Negative (Negative)
== END 2024-12-22 13:44 | disposition home or self-care (01) ==
LOC: LBN 13:43
PROVIDERS: PCP Nurse Practitioner Family; Visit Provider Obstetrics & Gynecology
DX: Z12.4 Encounter for screening for malignant neoplasm of cervix (principal)
CPT/HCPCS: 87491; 87591; 88142; 87624

== ENCOUNTER 2025-01-12 14:29 | Outpatient (REF) | payer BC, SELFPAY ==
--- NOTE | 2025-01-12 14:15 | ENDO_PTH ---
PATIENT: Nelia Son LOC: [facility] U#:[id number] AGE/SX: 34/F ROOM: RE01/12/[address]: Madai Cunningham DO : 1990 BED: DIS: 01/12/2025 SPEC #: [id number] RECD: 01/12/25 17:46 STATUS: JEFRY RE #: [id number] RIVERA: 01/12/25 14:[address]: Madai Cunningham DEPT: Surgical Specimen RECD BY: Mary Kelsey ENTERED: 01/12/25 17:46 SP TYPE: Endo OTHR DR: YADIRA MURPHY NP Tissues: 1 - ENDOCERVICAL BX/CURRETTE Procedures: GROSS AND MICRO LEVEL 4 IMMUNOPEROXIDASE STAIN Comments: [id number]
== END 2025-01-12 14:30 | disposition home or self-care (01) ==
LOC: LBN 14:29
PROVIDERS: PCP Nurse Practitioner Family; Visit Provider Obstetrics & Gynecology
DX: R87.610 Atypical squamous cells of undetermined significance on cytologic smear of cervix (ASC-US) (principal)
CPT/HCPCS: 88305; 88361

== ENCOUNTER 2025-03-30 15:52 | Outpatient (REF) | payer BC, SELFPAY ==
[2025-03-30 19:34] LABS: HCT 41.4 % (36.0-46.0); HGB 13.8 g/dL (11.2-15.7); MCH 30.6 pg (27.0-33.0); MCHC 33.3 % (32.0-36.0); MCV 92 fL (80-95); MPV 8.5 fL (8.0-11.0); Platelet Count 328 10^3/uL (130-400); RBC 4.51 10^6/uL (3.93-5.22); RDW 12.1 % (11.7-14.6); RDW-SD 40.6 fL; WBC 9.47 10^3/uL (4.4-10.8)
[2025-03-30 19:37] LABS: ESR 4 mm/hr (0-20)
[2025-03-30 19:49] LABS: ALT 18 U/L (10-49); AST 21 U/L (<34); Albumin 4.5 g/dL (3.4-5.0); Alkaline Phosphatase 64 U/L (46-116); Anion Gap 9.7 mmol/L (3-11); BUN 15 mg/dL (9-23); Bilirubin, Total 0.40 mg/dL (0.2-1.2); CO2 25.3 mmol/L (20.0-31.0); Calcium 9.3 mg/dL (8.3-10.6); Chloride 106 mmol/L (98-107); Glucose 133 mg/dL (74-106); Potassium 3.9 mmol/L (3.5-5.1); Sodium 141 mmol/L (136-145); Total Protein 7.1 g/dL (5.7-8.2)
== END 2025-03-30 15:53 | disposition home or self-care (01) ==
LOC: NCHCN 15:52
PROVIDERS: PCP Nurse Practitioner Family; Visit Provider Nurse Practitioner Family
DX: R10.31 Right lower quadrant pain (principal); R19.7 Diarrhea, unspecified; Z90.49 Acquired absence of other specified parts of digestive tract
CPT/HCPCS: 80053; 85027; 85652

== ENCOUNTER 2025-04-07 00:12 | Emergency (ER) | payer BC, SELFPAY ==
[2025-04-07 00:14] VITALS: BP 120/86; PULSE 79; RESP 16; TEMP 36.8; O2SAT 100
--- NOTE | 2025-04-07 00:14 | W.ED.GENAD ---
Discharge Plan Disposition Patient Disposition: Home Condition: Good Discharge Details Clinical Impression: Dental infection Primary Care Provider: YADIRA MURPHY ED Provider: Chad Keatings and New Rx's Prescriptions: New amoxicillin 500 mg tablet 500 mg PO Q8H Qty: 20 0RF Continued cholecalciferol (vitamin D3) 25 mcg (1,000 unit) capsule 25 mcg PO DAILY Nexplanon 68 mg implant 1 implant subdermal ONCE Qty: 1 0RF Rx Instructions: as a single dose cetirizine 10 mg tablet 10 mg PO DAILY PRN Discharge Instructions Instructions: Tooth Abscess ED Additional Instructions: You were seen for dental pain and facial swelling with an exam that is consistent with infection but otherwise reassuring. Please take antibiotic as prescribed. Alternate acetaminophen with ibuprofen every 4 hours as we discussed. Contact your dentist for follow-up this week. Return to ED for fever, mental status change, increased facial swelling, difficulty breathing, inability to swallow. Stand Alone Forms: Portal Information HPI General Mode of arrival: ambulatory. Date/Time Provider Initiated Documentation: 04/07/25 00:14. Limitations to Documentation: no limitations. Information obtained by: patient and RN notes reviewed. HPI Narrative: Patient presents to ED with dental pain, facial pain and swelling. Initially started out as upper right dental pain earlier in the day on Saturday. Now with facial pain and swelling. Denies any fever, headache, difficulty breathing, difficulty swallowing, difficulty opening mouth. She has been using acetaminophen for pain. She does have a dentist that she can follow-up with. She has no drug allergies. Related Data Home Medications Medication Instructions Recorded Confirmed cholecalciferol (vitamin D3) 25 25 mcg PO DAILY 04/19/21 04/07/25 mcg (1,000 unit) capsule etonogestrel 68 mg subdermal 1 implant subdermal ONCE #1 ea 05/01/21 04/07/25 implant (Nexplanon) cetirizine 10 mg tablet 10 mg PO DAILY PRN 09/10/23 04/07/25 amoxicillin 500 mg tablet 500 mg PO Q8H #20 tabs 04/07/25 Previous Rx's Medication Instructions Recorded etonogestrel 68 mg subdermal 1 implant subdermal ONCE #1 ea 05/01/21 implant (Nexplanon) amoxicillin 500 mg tablet 500 mg PO Q8H #20 tabs 04/07/25 Allergies Allergy/AdvReac Type Severity Reaction Status Date / Time No Known Allergies Allergy Verified 04/07/25 00:19 General JIM: 4 Exam Narrative Exam Narrative: Const: WDWN female in NAD. VS per triage. HEENT: NC/AT. Right maxillary swelling, no erythema, mild tenderness. Able to open mouth fully. Poor dentition. Right upper back molar decay to gum line and painful to percussion. No gingival abscess noted. Neck: Supple. Trachea midline. Slight right cervical anterior adenopathy. Lungs: Normal respiratory effort. Neuro: A+O x 3. Normal speech, mentation, gait. Cranial nerves II - XII grossly intact. No gross motor or sensory deficit. Medical Decision Making Patient presenting with right upper dental pain and facial swelling. Exam and presentation consistent with dental infection. There is no gingival abscess or drainage. Patient will be started on amoxicillin with first dose given here and a trivial dose to take tomorrow morning. Prescription sent to her pharmacy. Discussed alternating acetaminophen and ibuprofen for pain. She is to contact her dentist tomorrow to follow-up. Return precautions provided. 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 Repeat LEEP CIN2 with focally positive margins. 2019: LSIL, pt did not have f/u colpo 2020: LSIL-H, Colpo neg. 2022. ASCUS + HPV. Neg colpo bx. 12/22/2024–Pap smear, with HPV. GC chlamydia screening. Reactive/reparative, positive HPV. Colpo 01/12/2025–ECC.-Reactive atypia recommend repeat Pap smear Repeat Pap smear 02/12 Medical History History of cervical dysplasia Fatigue Gastritis Mood disorder Adjustment disorder Low grade squamous intraepithelial lesion (LGSIL) on cervical Pap smear Intrauterine contraceptive device Closed fracture distal radius and ulna (02/25/21) Fallopian tube disorder e 04/01/19 L sided attempt at chromopertubation of fallopian tube at time of laparoscopic salpingectomy without spillage Hydrosalpinx R side. Inpt Abx 01/12--. PO Abx x2w. repeat u/s.... Tobacco use Quit fall 2020 D[place]AS II (cervical intraepithelial neoplasia II) 11/2017 LEEP with margins + for CIN2. 01/2018 repeat LEEP: CIN2 extending to margins. Pt counseled repeat Pap in one year. Surgical History History of salpingectomy 04/01/19. R sided laparoscopic salpingectomy. History of section x2 History of cholecystectomy H/O LEEP 11/2017 CIN2. + Margins. 02/02/18 CIN2. Social History Smoking/Tobacco Use Status: Former Tobacco Use Quit Date: 03/16/19 Counseling given: provider counseling and counseling >3 minutes Smoking risk assessment performed?: Yes Alcohol Intake: current Alcohol Intake frequency: holidays/special occasions only Alcohol type: beer Drug use: Never Substance use type: does not use Household members: children and other Details: Cameron. [place]. BF Isaac (he has cystic fibrosis) Housing: house Number of Children: 2 current occupation: [employer] Sexually active: Yes Current gender identity: female Do you feel safe at home: Yes Do you feel safe in your relationship?: Yes Female Reproductive History Menstrual control method: implanted History History 2 Para 2 Hx # Term Pregnancies 2 Multiple births Hx # Pregnancies Ectopic pregnancies AB induced Hx Number of Living Children AB spontaneous Past Pregnancies Del. Date GA/Weeks # Preg Succ Route Wgt Sex Labor Lgth Anesthesia Location Prov Complic 10/28/10 42 Yes 3373.593 g Male [facility] 07/26/14 39 3486.991 g Male [facility]
[2025-04-07 00:17] VITALS: BP 120/86; PULSE 79; RESP 16; TEMP 36.8; O2SAT 100
[2025-04-07] MEDS: Amoxicillin 500 MG CAP PO ×2 (00:32)
== END 2025-04-07 00:35 | disposition home or self-care (01) ==
PROVIDERS: Emergency Provider Emergency Medicine; PCP Nurse Practitioner Family
DX: R68.84 Jaw pain (principal); K04.7 Periapical abscess without sinus
CPT/HCPCS: 99283 ×2

== ENCOUNTER 2025-04-07 07:19 | Emergency (ER) | payer BC, SELFPAY ==
[2025-04-07 07:24] VITALS: BP 121/80; PULSE 110; RESP 14; TEMP 36.8; O2SAT 98
[2025-04-07 07:27] VITALS: BP 121/80; PULSE 110; RESP 14; TEMP 36.8; O2SAT 98
--- NOTE | 2025-04-07 07:45 | W.ED.GENAD ---
Discharge Plan Disposition Patient Disposition: Home Condition: Good Discharge Details Clinical Impression: Abscess, dental Primary Care Provider: YADIRA MURPHY ED Provider: Tahir Mcmillan Home Meds and New Rx's Prescriptions: No Action Nexplanon 68 mg implant 1 implant subdermal ONCE Qty: 1 0RF Rx Instructions: as a single dose amoxicillin 500 mg tablet 500 mg PO Q8H Qty: 20 0RF Discharge Instructions Instructions: Dental Pain ED Additional Instructions: The block we administered should help improve your pain. Please take 800 mg of ibuprofen every 6 hours and 1000 mg of Tylenol every 6 hours to help with the inflammation and pain. These are the maximum doses. Please take the antibiotic as directed to help with the infection in your tooth. Please use the dental list that we have provided to contact the dentist for prompt follow-up and evaluation for tooth removal. If you notice any worsening of your symptoms, or any new symptoms such as difficulty swallowing, difficulty breathing, vomiting, diarrhea, fever, chills, shortness of breath, chest pain, numbness, weakness, or fainting , please return immediately to the emergency department for reevaluation. Please follow up with your primary care provider as soon as possible for reassessment and reevaluation. As always, it was a pleasure participating in your medical care today. Stand Alone Forms: Portal Information HPI General Date/Time Provider Initiated Documentation: 04/07/25 07:34. HPI Narrative: This is a pleasant 34-year-old female with a past medical history of cholecystectomy, tubal ligation, GERD, exercise-induced asthma, dental caries, who presents today for evaluation of left upper dental pain. Patient was seen and assessed by my colleague Dr. Keating this past evening. She was appropriately treated with amoxicillin. She received her first dose last night, and had is a dose for this morning as well in addition to her sent prescription. Unfortunately she noticed significant swelling in her left upper dental area this morning after starting the antibiotic. To be clear there were no symptoms of difficulty breathing, rash, nausea vomiting or diarrhea or wheeze. No history of allergies to antibiotics. Swelling was localized around the diseased tooth in the left upper molar area. Patient return for reassessment. Patient has no other complaints aside from swelling and pain. No fever or chills. No other modifying factors. Related Data Home Medications Medication Instructions Recorded Confirmed etonogestrel 68 mg subdermal 1 implant subdermal ONCE #1 ea 05/01/21 04/07/25 implant (Nexplanon) amoxicillin 500 mg tablet 500 mg PO Q8H #20 tabs 04/07/25 04/07/25 Previous Rx's Medication Instructions Recorded etonogestrel 68 mg subdermal 1 implant subdermal ONCE #1 ea 05/01/21 implant (Nexplanon) amoxicillin 500 mg tablet 500 mg PO Q8H #20 tabs 04/07/25 Allergies Allergy/AdvReac Type Severity Reaction Status Date / Time No Known Allergies Allergy Verified 04/07/25 07:28 General Stated Complaint: DentalOral JIM: 3 Exam Narrative Exam Narrative: 1.Const: Well-nourished, Well-developed, appearing stated age 2.Eyes: PERRL, no conjunctival injection, and symmetrical lids. 3.ENT: Atraumatic external nose and ears. Moist MM. Neck: Symmetric, trachea midline, No thyromegaly. Notable swelling in the left upper lateral dental space around tooth 613. No active drainage. Multiple diseased tooth and dental caries throughout. 4.CVS: +S1/S2, Peripheral pulses 2+ and equal in all extremities. Brisk capillary refill in all extremities. 5.RESP: Unlabored respiratory effort. Clear to auscultation bilaterally. No wheezes rales or rhonchi 6.GI: Soft, Nontender/Nondistended, No hepatosplenomegaly. No guarding or rebound. 7.MSK: Normocephalic/Atraumatic, Extremities w/o deformity or ttp No cyanosis or clubbing, Normal movement of all extremities 8.Skin: Warm, Dry. No rashes or lesions. 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 Sensation grossly intact, no focal neurologic deficits. 10.Psych: (AAO) x3. Appropriate mood and affect Course Vital Signs Vital signs: Vital Signs Temperature 36.8 C 04/07/25 07:24 Pulse 110 H 04/07/25 07:24 Respiratory Rate 14 04/07/25 07:24 Blood Pressure 121/80 04/07/25 07:24 Pulse Oximetry 98 04/07/25 07:24 Temperature 36.8 C 04/07/25 07:27 Temperature Source Oral 04/07/25 07:27 Pulse 110 H 04/07/25 07:27 Respiratory Rate 14 04/07/25 07:27 Blood Pressure 121/80 04/07/25 07:27 Blood Pressure Position Sitting 04/07/25 07:27 Pulse Oximetry 98 04/07/25 07:27 Oxygen Delivery Method Room Air 04/07/25 07:27 Oxygen Flow Rate 0 04/07/25 07:27 Pain Level 10 04/07/25 07:29 Procedure Abscess Drainage Date of Procedure: 04/07/25 Time of Procedure: 08:12 Provider that performed the procedure: Tahir Mcmillan Standard Time Out Performed: No Patient Consented: Verbally Location of Exam: Oral Indication: Abscess. Sterility: Non Sterile. Procedure Prep: Hand hygiene and Surgical Mask. Technique used needle aspiration. Amount of fluid expressed(mL): 4. Outcome: Sucessful Nerve Block 1st Nerve Block: Date of Procedure: 04/07/25 Time of procedure: 07:48 Provider that performed the procedure: Tahir Mcmillan Indication: Local pain control Standard Time Out Performed: No Patient Consented: Verbally Local Anesthetic: Bupivicaine 0.25% Amount of anethetic used(mL): 6 Sterility: Non Sterile Laterality: Left Intraoral Nerve Block: superior alveolar Ultrasound: Not used Paresthesia: Left (Appropriate) Paresthesia Duration: Transient Procedure Tolerated: No Complications and Patient tolerated well Procedure Outcome: Successful Medical Decision Making This is a pleasant 34-year-old female with a past medical history of cholecystectomy, tubal ligation, GERD, exercise-induced asthma, dental caries, who presents today for evaluation of left upper dental pain. Patient was seen and assessed by my colleague Dr. Keating this past evening. She was appropriately treated with amoxicillin. She received her first dose last night, and had is a dose for this morning as well in addition to her sent prescription. Unfortunately she noticed significant swelling in her left upper dental area this morning after starting the antibiotic. To be clear there were no symptoms of difficulty breathing, rash, nausea vomiting or diarrhea or wheeze. No history of allergies to antibiotics. Swelling was localized around the diseased tooth in the left upper molar area. Patient return for reassessment. Patient has no other complaints aside from swelling and pain. No fever or chills. No other modifying factors. Exam demonstrates well-appearing female, she has a moderate area of swelling over the upper tooth around tooth 13. No active drainage. No signs of airway compromise whatsoever. No evidence of decreased viability of the posterior oropharynx. No rash, wheeze, diarrhea, to suggest allergic reaction. Swelling appears appropriate for antibiotic related infection control pus development. patient consents to dental block and needle drainage. We will anesthetize the patient drain, and reassess. 8:14 AM Incision and drainage was performed with 18-gauge needle, about 4 mL of pus was removed. Patient tolerated this well. Small amount of bleeding which stopped on its own. Patient feels well. Patient will be discharged home recommend continuation of antibiotics. Discussed red flags for which to return. I have extensively reviewed the treatment plan and discharge instructions with the patient. I have addressed all patient concerns at this time. The patient was made aware of what symptoms to monitor for that would warrant a return to the emergency department. Discussed the plan with the patient, they demonstrate verbal understanding and agreement with our assessment and plan at this time. The documentation in this chart was dictated using Peerform dictation software. Please excuse any dictation errors. 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 Repeat LEEP CIN2 with focally positive margins. 2019: LSIL, pt did not have f/u colpo 2020: LSIL-H, Colpo neg. 2022. ASCUS + HPV. Neg colpo bx. 12/22/2024–Pap smear, with HPV. GC chlamydia screening. Reactive/reparative, positive HPV. Colpo 01/12/2025–ECC.-Reactive atypia recommend repeat Pap smear Repeat Pap smear 02/12 Medical History History of cervical dysplasia Fatigue Gastritis Mood disorder Adjustment disorder Low grade squamous intraepithelial lesion (LGSIL) on cervical Pap smear Intrauterine contraceptive device Closed fracture distal radius and ulna (02/25/21) Fallopian tube disorder e 04/01/19 L sided attempt at chromopertubation of fallopian tube at time of laparoscopic salpingectomy without spillage Hydrosalpinx R side. Inpt Abx 01/12-8-. PO Abx x2w. repeat u/s.... Tobacco use Quit fall 2020 D[place] II (cervical intraepithelial neoplasia II) 11/2017 LEEP with margins + for CIN2. 01/2018 repeat LEEP: CIN2 extending to margins. Pt counseled repeat Pap in one year. Surgical History History of salpingectomy 04/01/19. R sided laparoscopic salpingectomy. History of section x2 History of cholecystectomy H/O LEEP 11/2017 CIN2. + Margins. 02/02/18 CIN2. Social History Smoking/Tobacco Use Status: Former Tobacco Use Quit Date: 03/16/19 Counseling given: provider counseling and counseling >3 minutes Smoking risk assessment performed?: Yes Alcohol Intake: current Alcohol Intake frequency: holidays/special occasions only Alcohol type: beer Drug use: Never Substance use type: does not use Household members: children and other Details: HuaShayy Oz. BF Isaac (he has cystic fibrosis) Housing: house Number of Children: 2 current occupation: [employer] Sexually active: Yes Current gender identity: female Do you feel safe at home: Yes Do you feel safe in your relationship?: Yes Female Reproductive History Menstrual control method: implanted History History 2 Para 2 Hx # Term Pregnancies 2 Multiple births Hx # Pregnancies Ectopic pregnancies AB induced Hx Number of Living Children AB spontaneous Past Pregnancies Del. Date GA/Weeks # Preg Succ Route Wgt Sex Labor Lgth Anesthesia Location Prov Complic 10/28/10 42 Yes 3373.593 g Male [facility] 07/26/14 39 3486.991 g Male [facility] POCUS Exam (ED) Limited Soft Tissue Exam PROVIDER THAT PERFORMED THE STUDY: Tahir Mcmillan
[2025-04-07] MEDS: Bupivacaine 0.5% Pres-Free 30 ML VIAL (07:59)
[2025-04-07 08:22] VITALS: BP 113/68; PULSE 86; RESP 14; TEMP 36.8; O2SAT 98
== END 2025-04-07 08:25 | disposition home or self-care (01) ==
PROVIDERS: Emergency Provider Student in an Organized Health Care Education/Training Program; PCP Nurse Practitioner Family
DX: R68.84 Jaw pain (principal); K04.7 Periapical abscess without sinus
CPT/HCPCS: 41800; J0665